=== PATIENT | male | born 1950 | race Caucasian/White ===

== ENCOUNTER 2017-08-08 07:19 | Emergency (ER) | payer OTHER ==
[2017-08-08] MEDS ORDERED: TRAMADOL HCL 50 MG TABLET ONE (08:27)
== END 2017-08-08 08:47 | disposition home or self-care (01) ==
LOC: EDH 07:19
DX: S93.492A Sprain of other ligament of left ankle, initial encounter (principal); E78.5 Hyperlipidemia, unspecified; I10 Essential (primary) hypertension; E11.9 Type 2 diabetes mellitus without complications; W01.0XXA Fall on same level from slipping, tripping and stumbling without subsequent striking against object, initial encounter; Y93.89 Activity, other specified; Y92.89 Other specified places as the place of occurrence of the external cause; Y99.8 Other external cause status
CPT/HCPCS: 73600; 73620

== ENCOUNTER 2020-11-21 05:50 | Day surgery (SDC) | payer OTHER ==
[2020-11-17 14:18] LABS: BASOPHILS % (AUTO) 0.4 % (0.0-5.0); EOSINOPHILS % (AUTO) 2.4 % (0.0-8.0); HEMATOCRIT 38.8 % (42-54); LYMPHOCYTES % (AUTO) 17.6 % (21.0-51.0); MEAN CORPUSCULAR HEMOGLOBIN 29.1 pg (27.0-33.0); MEAN CORPUSCULAR HGB CONC 31.7 g/dL (32.0-36.0); MEAN CORPUSCULAR VOLUME 91.7 fL (79-99); MONOCYTES % (AUTO) 3.6 % (3.0-13.0); NEUTROPHILS % (AUTO) 75.8 % (40.0-77.0); PLATELET COUNT (AUTO) 276 K/uL (130-400); RED BLOOD CELL COUNT(AUTO) 4.23 MIL/uL (4.50-6.20); RED CELL DISTRIBUTION WIDTH 13.5 % (11.0-15.5); WHITE BLOOD COUNT (AUTO) 8.3 K/uL (4.8-10.8)
[2020-11-17 14:22] LABS: APPEARANCE,URINE Cloudy (CLEAR); BILIRUBIN,URINE Negative (NEGATIVE); COLOR,URINE Yellow (YELLOW); GLUCOSE, URINE (UA) 500 mg/dL (NEGATIVE); KETONES,URINE Negative (NEGATIVE); LEUKOCYTE ESTERASE ,URINE Negative (NEGATIVE); NITRATE,URINE Negative (NEGATIVE); OCCULT BLOOD,URINE Nonhemolyzed Trace (NEGATIVE); PROTEIN,URINE POS 1+ mg/dL (NEGATIVE)
[2020-11-17 14:30] LABS: CREATININE 1.1 mg/dL (0.5-1.5); POTASSIUM 4.7 mmol/L (3.5-5.1)
[2020-11-17 14:33] LABS: PROTHROMBIN TIME 10.9 SEC (9.6-11.6)
[2020-11-17 14:34] LABS: PARTIAL THROMBOPLASTIN TIME 26.8 SEC (26.3-35.5)
[2020-11-17 15:08] LABS: RBC,URINE 0-1 /HPF (0-1)
[2020-11-17 15:09] LABS: BACTERIA,URINE Rare /HPF (None Seen); SQUAMOUS EPITHELIAL CELL,UR None Seen /HPF (0-2); WBC,URINE None Seen /HPF (0-1)
[2020-11-20 11:00] VITALS: BP 165/79
[2020-11-21] VITALS (13 sets, daily range): BP systolic 14–167; BP diastolic 50–67
[~2020-11-21] VITALS: Ht 180.3 cm; Wt 86.2 kg
[~2020-11-21 05:50] MED LIST: ALBU90AE IH; AMLO-257 PO; CILO100T PO; CLOP75TA14 PO; HYDR25TA PO; INSU200I SQ; INSU3INS3 SQ; LEVO50CA4 PO; LEVO5TAB13 PO; LISI40TA9 PO; METF-446 PO; ROSU20TA31 PO
[2020-11-21] MEDS ORDERED: 0.9%NACL 1000ML 1,000 ML IV ONE (06:26)
[2020-11-21] MEDS ORDERED: FENTANYL CITRATE PF 50 MCG/1 ML 2ML VIAL ONE (07:43)
[2020-11-21] MEDS ORDERED: NITROGLYCERIN 50MG VIAL IV ONE (07:43)
[2020-11-21] MEDS ORDERED: MIDAZOLAM HCL 1 MG/ML 2ML VIAL ONE (07:43)
[2020-11-21] MEDS ORDERED: HEPARIN 10,000 UNIT/10ML (1,000 UNIT/ML) VIAL ONE (07:43)
[2020-11-21] MEDS ORDERED: IODIXANOL 320 MG/ML 100 ML VIAL ONE (07:43)
[2020-11-21] MEDS ORDERED: LIDOCAINE HCL 400MG/20ML VIAL ONE (07:44)
[2020-11-21] MEDS ORDERED: 0.9%NACL 1000ML 1,000 ML IV SCH ×2 (08:00→09:00)
[2020-11-21] MEDS ORDERED: DEXTROSE 50%-WATER 50 ML DISP.SYRIN IV PRN (09:00)
[2020-11-21] MEDS ORDERED: GLUCAGON 1MG KIT 1 MG ML IM PRN (09:00)
[2020-11-21] MEDS ORDERED: INSULIN HUMULIN R 100 UNIT/ML 3ML SQ SCH (11:30)
[2021-06-13] MEDS ORDERED: FAMO40TA7 PO (15:46)
[2021-06-13] MEDS ORDERED: DOCU100T9 PO (15:46)
[2021-06-13] MEDS ORDERED: HYDR25TA PO (15:46)
[2021-06-13] MEDS ORDERED: METO-408 PO (15:46)
== END 2020-11-21 15:25 | disposition home or self-care (01) ==
LOC: DAH 05:50
PROVIDERS: ATTEND Internal Medicine
DX: I70.213 Atherosclerosis of native arteries of extremities with intermittent claudication, bilateral legs (principal); I70.92 Chronic total occlusion of artery of the extremities; I70.0 Atherosclerosis of aorta; I10 Essential (primary) hypertension; E78.5 Hyperlipidemia, unspecified; I45.10 Unspecified right bundle-branch block; Z87.891 Personal history of nicotine dependence; Z79.01 Long term (current) use of anticoagulants; Z79.899 Other long term (current) drug therapy; Z79.4 Long term (current) use of insulin; Z79.82 Long term (current) use of aspirin; Z98.890 Other specified postprocedural states; Z72.89 Other problems related to lifestyle
CPT/HCPCS: 36247; 36415; 71045; 75625; 75716; 80048; 81001; 82948 ×2; 85025; 85610; 85730; 93005; A4215; A4216; A4221; A4222; A4223 ×3; A4606; A4663; C1769; C1887; C1894 ×2; J1644 ×2; J2250; J3010; J3490 ×2; J7030; Q9967; 96360; 96361; 99156; 99157

== ENCOUNTER 2021-04-19 16:03 | Inpatient (IN) | payer OTHER ==
[~2021-04-19] VITALS: Ht 180.3 cm; Wt 79.7 kg
[2021-04-19 16:42] LABS: BASOPHILS % (AUTO) 0.4 % (0.0-5.0); HEMATOCRIT 37.6 % (42-54); LYMPHOCYTES % (AUTO) 10.9 % (21.0-51.0); MEAN CORPUSCULAR HEMOGLOBIN 29.4 pg (27.0-33.0); MEAN CORPUSCULAR HGB CONC 32.4 g/dL (32.0-36.0); MEAN CORPUSCULAR VOLUME 90.6 fL (79-99); MONOCYTES % (AUTO) 4.4 % (3.0-13.0); NEUTROPHILS % (AUTO) 82.8 % (40.0-77.0); PLATELET COUNT (AUTO) 315 K/uL (130-400); RED BLOOD CELL COUNT(AUTO) 4.15 MIL/uL (4.50-6.20); RED CELL DISTRIBUTION WIDTH 13.2 % (11.0-15.5); WHITE BLOOD COUNT (AUTO) 16.5 K/uL (4.8-10.8)
[2021-04-19 16:47] LABS: APPEARANCE,URINE Clear (CLEAR); BILIRUBIN,URINE Negative (NEGATIVE); COLOR,URINE Yellow (YELLOW); GLUCOSE, URINE (UA) >=1000 mg/dL (NEGATIVE); KETONES,URINE Negative (NEGATIVE); LEUKOCYTE ESTERASE ,URINE Negative (NEGATIVE); NITRATE,URINE Negative (NEGATIVE); OCCULT BLOOD,URINE Moderate (NEGATIVE); PH,URINE 5.5 (5.0-8.0); PROTEIN,URINE POS 1+ mg/dL (NEGATIVE)
[2021-04-19 16:53] LABS: BACTERIA,URINE Few /HPF (None Seen); RBC,URINE 0-1 /HPF (0-1)
[2021-04-19 16:54] LABS: SQUAMOUS EPITHELIAL CELL,UR Rare /HPF (0-2)
[2021-04-19 17:06] LABS: ALBUMIN 3.5 g/dL (3.5-5.0); BILIRUBIN,TOTAL 0.2 mg/dL (0.2-1.0); CREATININE 1.4 mg/dL (0.5-1.5); CRP QUANTITATIVE 8.5 mg/L (0.00-9.0); TOTAL PROTEIN, SERUM 7.2 g/dL (6.0-8.3)
[2021-04-19] MEDS ORDERED: ACETAMINOPHEN 650 MG SUPPOSITORY RC PRN (18:00)
[2021-04-19] MEDS ORDERED: ONDANSETRON 4MG INJ IVP PRN (18:00)
[2021-04-19] MEDS ORDERED: ZOSYN 3.375GM +NS 50ML IV SCH (18:00)
[2021-04-19] MEDS: LACTATED RINGERS 1000ML 1,000 ML IV SCH (19:00)
[2021-04-19] MEDS ORDERED: 0.9%NACL 50ML 50 ML IV ONE (20:21)
[2021-04-19 20:24] LABS: APPEARANCE,URINE Clear (CLEAR); BILIRUBIN,URINE Negative (NEGATIVE); COLOR,URINE Yellow (YELLOW); GLUCOSE, URINE (UA) >=1000 mg/dL (NEGATIVE); KETONES,URINE Negative (NEGATIVE); LEUKOCYTE ESTERASE ,URINE Trace (NEGATIVE); NITRATE,URINE Negative (NEGATIVE); OCCULT BLOOD,URINE Moderate (NEGATIVE); PH,URINE 5.5 (5.0-8.0); PROTEIN,URINE POS 1+ mg/dL (NEGATIVE); UROBILINOGEN,URINE 0.2 mg/dL (0.2-1.0)
[2021-04-19 20:31] LABS: RBC,URINE 0-1 /HPF (0-1)
[2021-04-19 20:32] LABS: BACTERIA,URINE Few /HPF (None Seen); SQUAMOUS EPITHELIAL CELL,UR Few /HPF (0-2)
[2021-04-19] MEDS ORDERED: TEMAZEPAM 15 MG CAPSULE PO PRN (21:00)
[2021-04-19] MEDS ORDERED: LACTULOSE 20 GM/30 ML UDCUP PO PRN (21:00)
[2021-04-19] MEDS: INSULIN HUMULIN R 100 UNIT/ML 3ML SQ SCH (21:26)
[2021-04-19] MEDS ORDERED: DEXTROSE 50%-WATER 50 ML DISP.SYRIN IV PRN (21:30)
[2021-04-19] MEDS ORDERED: GLUCAGON 1MG KIT 1 MG ML IM PRN (21:30)
[2021-04-19] MEDS ORDERED: POTASSIUM CHLORIDE 20MEQ/100ML 100 ML IV PRN (21:30)
[2021-04-19] MEDS ORDERED: POTASSIUM CHLORIDE 10% ELIXIR 20 MEQ/15 ML UDCUP PO PRN (21:30)
[2021-04-19] MEDS ORDERED: LIDOCAINE HCL-MPF 1% 2ML VIAL IV PRN (21:30)
[2021-04-19] MEDS ORDERED: HYDRALAZINE 20MG/ML VIAL IV PRN (21:30)
[2021-04-19] MEDS: ATORVASTATIN 40 MG TABLET PO SCH (22:47)
[2021-04-20] MEDS: IPRATROPIUM/ALBUTEROL SULFATE 3 ML SOLUTION IH SCH ×5 (00:43→23:56)
[2021-04-20] MEDS: LACTATED RINGERS 1000ML 1,000 ML IV SCH ×3 (03:08→18:56)
[2021-04-20 05:48] LABS: HEMATOCRIT 37.1 % (42-54); MEAN CORPUSCULAR HEMOGLOBIN 29.7 pg (27.0-33.0); MEAN CORPUSCULAR HGB CONC 32.3 g/dL (32.0-36.0); MEAN CORPUSCULAR VOLUME 91.8 fL (79-99); RED BLOOD CELL COUNT(AUTO) 4.04 MIL/uL (4.50-6.20); RED CELL DISTRIBUTION WIDTH 13.2 % (11.0-15.5); WHITE BLOOD COUNT (AUTO) 9.8 K/uL (4.8-10.8)
[2021-04-20 05:59] LABS: CREATININE 1.2 mg/dL (0.5-1.5); MAGNESIUM 2.1 mg/dL (1.80-2.40); PHOSPHORUS 3.8 mg/dL (2.5-4.9); POTASSIUM 4.2 mmol/L (3.5-5.1)
[2021-04-20] MEDS ORDERED: 0.9%NACL 50ML 50 ML IV ONE ×3 (06:10→22:53)
[2021-04-20] MEDS: ZOSYN 3.375GM +NS 50ML IV SCH ×3 (06:13→22:58)
[2021-04-20 06:39] LABS: HEMOGLOBIN A1C 7.9 % (4.0-6.0)
[2021-04-20] MEDS: LEVOTHYROXINE 50 MCG TABLET PO SCH (06:45)
[2021-04-20] MEDS: INSULIN HUMULIN R 100 UNIT/ML 3ML SQ SCH ×6 (07:30→21:00)
[2021-04-20] MEDS: ACETAMINOPHEN 325 MG TAB PO PRN ×3 (07:42→21:48)
[2021-04-20] MEDS: PANTOPRAZOLE 40 MG TAB DR PO SCH (07:42)
[2021-04-20] MEDS: INSULIN GLARGINE 100 UNITS/ML 10 ML VIAL SQ SCH ×2 (07:44→21:00)
[2021-04-20] MEDS: CLOPIDOGREL 75MG TAB PO SCH (09:16)
[2021-04-20] MEDS: ENOXAPARIN SODIUM 40 MG/0.4 ML SYRINGE SQ SCH (09:18)
[2021-04-20 09:47] LABS: INR 0.94 (0.85-1.15); PROTHROMBIN TIME 10.3 SEC (9.6-11.6)
[2021-04-20 09:48] LABS: PARTIAL THROMBOPLASTIN TIME 23.6 SEC (26.3-35.5)
[2021-04-20] MEDS: CILOSTAZOL 100 MG TAB PO SCH (10:11)
[2021-04-20] MEDS: NICOTINE 14 MG/ 24 HR PATCH TD SCH (10:12)
[2021-04-20] MEDS: ***HM***(Levocetirizine Dihydrochloride 5 MG) PO SCH (21:00)
[2021-04-20] MEDS: ATORVASTATIN 40 MG TABLET PO SCH (22:58)
[2021-04-20 23:03] VITALS: BP 170/68
[2021-04-21] VITALS (8 sets, daily range): BP systolic 112–167; BP diastolic 44–69
[2021-04-21] MEDS: CILOSTAZOL 100 MG TAB PO SCH ×3 (00:09→21:00)
[2021-04-21] MEDS: LACTATED RINGERS 1000ML 1,000 ML IV SCH ×3 (01:44→18:09)
[2021-04-21] MEDS ORDERED: MORPHINE 4 MG SYG ONE (02:16)
[2021-04-21] MEDS: MORPHINE 4 MG SYG IV PRN (02:30)
[2021-04-21] MEDS: ACETAMINOPHEN 325 MG TAB PO PRN ×2 (04:20→16:27)
[2021-04-21] MEDS: ZOSYN 3.375GM +NS 50ML IV SCH ×3 (05:33→21:31)
[2021-04-21] MEDS: PANTOPRAZOLE 40 MG TAB DR PO SCH (05:33)
[2021-04-21] MEDS: LEVOTHYROXINE 50 MCG TABLET PO SCH (05:33)
[2021-04-21] MEDS: INSULIN HUMULIN R 100 UNIT/ML 3ML SQ SCH ×4 (05:34→22:21)
[2021-04-21] MEDS: IPRATROPIUM/ALBUTEROL SULFATE 3 ML SOLUTION IH SCH ×3 (06:17→18:05)
[2021-04-21] MEDS: INSULIN GLARGINE 100 UNITS/ML 10 ML VIAL SQ SCH ×2 (06:59→22:22)
[2021-04-21] MEDS: AMLODIPINE 5 MG TAB PO SCH (08:03)
[2021-04-21] MEDS: HYDROCHLOROTHIAZIDE 25 MG TABLET PO SCH (08:03)
[2021-04-21] MEDS: CLOPIDOGREL 75MG TAB PO SCH (08:03)
[2021-04-21] MEDS: ENOXAPARIN SODIUM 40 MG/0.4 ML SYRINGE SQ SCH (08:05)
[2021-04-21] MEDS: NICOTINE 14 MG/ 24 HR PATCH TD SCH (09:16)
[2021-04-21 11:50] LABS: HEMATOCRIT 35.5 % (42-54); MEAN CORPUSCULAR HEMOGLOBIN 29.4 pg (27.0-33.0); MEAN CORPUSCULAR HGB CONC 32.4 g/dL (32.0-36.0); MEAN CORPUSCULAR VOLUME 90.8 fL (79-99); RED BLOOD CELL COUNT(AUTO) 3.91 MIL/uL (4.50-6.20); RED CELL DISTRIBUTION WIDTH 13.3 % (11.0-15.5); WHITE BLOOD COUNT (AUTO) 8.5 K/uL (4.8-10.8)
[2021-04-21 12:01] LABS: CREATININE 1.1 mg/dL (0.5-1.5); POTASSIUM 3.9 mmol/L (3.5-5.1)
[2021-04-21] MEDS: ***HM***(Levocetirizine Dihydrochloride 5 MG) PO SCH (21:00)
[2021-04-21] MEDS: ATORVASTATIN 40 MG TABLET PO SCH (21:31)
[2021-04-22] MEDS: IPRATROPIUM/ALBUTEROL SULFATE 3 ML SOLUTION IH SCH ×4 (00:15→18:07)
[2021-04-22] MEDS: ACETAMINOPHEN 325 MG TAB PO PRN (00:32)
[2021-04-22] MEDS: LACTATED RINGERS 1000ML 1,000 ML IV SCH ×3 (02:00→18:00)
[2021-04-22 03:40] VITALS: BP 159/65
[2021-04-22] MEDS: MORPHINE 4 MG SYG IV PRN (05:08)
[2021-04-22] MEDS: ZOSYN 3.375GM +NS 50ML IV SCH ×3 (05:08→20:45)
[2021-04-22 05:42] LABS: HEMATOCRIT 36.9 % (42-54); MEAN CORPUSCULAR HEMOGLOBIN 29.4 pg (27.0-33.0); RED BLOOD CELL COUNT(AUTO) 4.01 MIL/uL (4.50-6.20); RED CELL DISTRIBUTION WIDTH 13.3 % (11.0-15.5); WHITE BLOOD COUNT (AUTO) 6.9 K/uL (4.8-10.8)
[2021-04-22 05:53] LABS: CREATININE 1.1 mg/dL (0.5-1.5); POTASSIUM 3.6 mmol/L (3.5-5.1)
[2021-04-22] MEDS: LEVOTHYROXINE 50 MCG TABLET PO SCH (06:29)
[2021-04-22] MEDS: PANTOPRAZOLE 40 MG TAB DR PO SCH (06:29)
[2021-04-22] MEDS: INSULIN GLARGINE 100 UNITS/ML 10 ML VIAL SQ SCH ×2 (06:36→21:00)
[2021-04-22] MEDS: INSULIN HUMULIN R 100 UNIT/ML 3ML SQ SCH ×4 (06:44→21:00)
[2021-04-22] MEDS: HYDROCHLOROTHIAZIDE 25 MG TABLET PO SCH (08:38)
[2021-04-22] MEDS: AMLODIPINE 5 MG TAB PO SCH (08:38)
[2021-04-22] MEDS: CLOPIDOGREL 75MG TAB PO SCH (08:39)
[2021-04-22] MEDS: ENOXAPARIN SODIUM 40 MG/0.4 ML SYRINGE SQ SCH (08:39)
[2021-04-22 08:50] VITALS: BP 117/72
[2021-04-22 11:15] VITALS: BP 170/65
[2021-04-22] MEDS: NICOTINE 14 MG/ 24 HR PATCH TD SCH (11:20)
[2021-04-22] MEDS: CILOSTAZOL 100 MG TAB PO SCH ×2 (11:20→20:45)
[2021-04-22 16:46] VITALS: BP 175/64
[2021-04-22] MEDS ORDERED: TAMSULOSIN HCL 0.4 MG CAP.ER.24H PO SCH (18:30)
[2021-04-22] MEDS ORDERED: TAMSULOSIN HCL 0.4 MG CAP.ER.24H ONE (18:37)
[2021-04-22 20:23] VITALS: BP 177/68
[2021-04-22] MEDS: ATORVASTATIN 40 MG TABLET PO SCH (20:45)
[2021-04-22] MEDS: ***HM***(Levocetirizine Dihydrochloride 5 MG) PO SCH (20:50)
[2021-04-23] MEDS: MORPHINE 4 MG SYG IV PRN (00:10)
[2021-04-23] MEDS: IPRATROPIUM/ALBUTEROL SULFATE 3 ML SOLUTION IH SCH ×3 (00:11→12:36)
[2021-04-23 00:21] VITALS: BP 143/61
[2021-04-23] MEDS: LACTATED RINGERS 1000ML 1,000 ML IV SCH ×2 (02:00→10:00)
[2021-04-23 04:05] VITALS: BP 119/62
[2021-04-23 05:05] LABS: HEMATOCRIT 34.9 % (42-54); MEAN CORPUSCULAR HEMOGLOBIN 29.4 pg (27.0-33.0); MEAN CORPUSCULAR HGB CONC 32.7 g/dL (32.0-36.0); MEAN CORPUSCULAR VOLUME 89.9 fL (79-99); RED BLOOD CELL COUNT(AUTO) 3.88 MIL/uL (4.50-6.20); RED CELL DISTRIBUTION WIDTH 13.2 % (11.0-15.5); WHITE BLOOD COUNT (AUTO) 7.7 K/uL (4.8-10.8)
[2021-04-23 05:17] LABS: POTASSIUM 3.6 mmol/L (3.5-5.1)
[2021-04-23] MEDS: ZOSYN 3.375GM +NS 50ML IV SCH ×2 (05:24→12:56)
[2021-04-23] MEDS: INSULIN HUMULIN R 100 UNIT/ML 3ML SQ SCH ×3 (05:41→17:05)
[2021-04-23] MEDS: PANTOPRAZOLE 40 MG TAB DR PO SCH (05:44)
[2021-04-23] MEDS: LEVOTHYROXINE 50 MCG TABLET PO SCH (05:44)
[2021-04-23] MEDS: KCL 20 MEQ ERTAB PO PRN ×2 (06:40→11:57)
[2021-04-23] MEDS: INSULIN GLARGINE 100 UNITS/ML 10 ML VIAL SQ SCH (06:43)
[2021-04-23 08:01] VITALS: BP 174/63
[2021-04-23] MEDS ORDERED: AMOX-426 PO (08:36)
[2021-04-23] MEDS ORDERED: TAMS-1 PO (08:36)
[2021-04-23] MEDS ORDERED: TAMSULOSIN HCL 0.4 MG CAP.ER.24H PO SCH (09:00)
[2021-04-23] MEDS: NICOTINE 14 MG/ 24 HR PATCH TD SCH (10:21)
[2021-04-23] MEDS: ENOXAPARIN SODIUM 40 MG/0.4 ML SYRINGE SQ SCH (10:21)
[2021-04-23] MEDS: CILOSTAZOL 100 MG TAB PO SCH (10:22)
[2021-04-23] MEDS: AMLODIPINE 5 MG TAB PO SCH (10:22)
[2021-04-23] MEDS: CLOPIDOGREL 75MG TAB PO SCH (10:22)
[2021-04-23] MEDS: HYDROCHLOROTHIAZIDE 25 MG TABLET PO SCH (10:22)
[2021-04-23 11:05] VITALS: BP 158/66
[2021-04-23 16:19] VITALS: BP 170/67
== END 2021-04-23 19:00 | disposition home or self-care (01) | DRG 871 ==
LOC: EDH 16:03 → EDHIP 17:32 → OBSVTOIN 17:32 → 3AH 04-20 21:30
PROVIDERS: ADMIT Internal Medicine Pulmonary Disease; ATTEND Internal Medicine Pulmonary Disease
DX: A41.9 Sepsis, unspecified organism (principal); N15.1 Renal and perinephric abscess; J44.9 Chronic obstructive pulmonary disease, unspecified; Z20.822 Contact with and (suspected) exposure to COVID-19; M19.90 Unspecified osteoarthritis, unspecified site; I10 Essential (primary) hypertension; E78.5 Hyperlipidemia, unspecified; F17.210 Nicotine dependence, cigarettes, uncomplicated; E10.51 Type 1 diabetes mellitus with diabetic peripheral angiopathy without gangrene; E03.9 Hypothyroidism, unspecified; K59.00 Constipation, unspecified; N28.89 Other specified disorders of kidney and ureter; R79.89 Other specified abnormal findings of blood chemistry; Z91.041 Radiographic dye allergy status; Z79.84 Long term (current) use of oral hypoglycemic drugs; Z79.02 Long term (current) use of antithrombotics/antiplatelets; Z79.4 Long term (current) use of insulin; Z79.899 Other long term (current) drug therapy
CPT/HCPCS: 36415; 71045; 71250; 74150; 74170; 74176; 74181; 76770; 78582; 80048; 80053; 81001; 82948; 83036; 83735; 84100; 84153; 84484; 85025; 85027; 85378; 85610; 85730; 86140; 87040; 87077; 87088; 87186; 87635; 93005; 93970; 94640; 94664; A9540; A9558; G0378; J0360; J1200; J1650; J1815; J2270; J2405; J2543; J2930; J7120; Q9967

== ENCOUNTER 2021-06-14 05:56 | Observation (INO) | payer OTHER ==
[2021-06-12 10:48] VITALS: BP 177/62
[2021-06-12 13:10] LABS: BASOPHILS % (AUTO) 0.3 % (0.0-5.0); EOSINOPHILS % (AUTO) 2.6 % (0.0-8.0); HEMATOCRIT 36.8 % (42-54); LYMPHOCYTES % (AUTO) 16.6 % (21.0-51.0); MEAN CORPUSCULAR HEMOGLOBIN 30.3 pg (27.0-33.0); MEAN CORPUSCULAR HGB CONC 33.2 g/dL (32.0-36.0); MEAN CORPUSCULAR VOLUME 91.3 fL (79-99); MONOCYTES % (AUTO) 4.7 % (3.0-13.0); NEUTROPHILS % (AUTO) 75.5 % (40.0-77.0); PLATELET COUNT (AUTO) 299 K/uL (130-400); RED BLOOD CELL COUNT(AUTO) 4.03 MIL/uL (4.50-6.20); RED CELL DISTRIBUTION WIDTH 13.4 % (11.0-15.5); WHITE BLOOD COUNT (AUTO) 10.6 K/uL (4.8-10.8)
[2021-06-12 13:19] LABS: CREATININE 1.2 mg/dL (0.5-1.5); POTASSIUM 4.5 mmol/L (3.5-5.1)
[2021-06-12 13:23] LABS: APPEARANCE,URINE Clear (CLEAR); BILIRUBIN,URINE Negative (NEGATIVE); COLOR,URINE Yellow (YELLOW); GLUCOSE, URINE (UA) 500 mg/dL (NEGATIVE); KETONES,URINE Negative (NEGATIVE); LEUKOCYTE ESTERASE ,URINE Negative (NEGATIVE); NITRATE,URINE Negative (NEGATIVE); OCCULT BLOOD,URINE Trace (NEGATIVE); PROTEIN,URINE POS 2+ mg/dL (NEGATIVE); UROBILINOGEN,URINE 0.2 mg/dL (0.2-1.0)
[2021-06-12 13:27] LABS: INR 0.92 (0.85-1.15); PROTHROMBIN TIME 10.1 SEC (9.6-11.6)
[2021-06-12 13:28] LABS: PARTIAL THROMBOPLASTIN TIME 27.1 SEC (26.3-35.5)
[2021-06-12 13:31] LABS: BACTERIA,URINE Rare /HPF (None Seen); RBC,URINE 0-1 /HPF (0-1); SQUAMOUS EPITHELIAL CELL,UR Rare /HPF (0-2); WBC,URINE 0-1 /HPF (0-1)
[~2021-06-14] VITALS: Ht 180.3 cm; Wt 83.9 kg
[2021-06-14] VITALS (19 sets, daily range): BP systolic 121–160; BP diastolic 49–82
[~2021-06-14 05:56] MED LIST changes: -ALBU90AE IH; +DOCU100T9 PO; +FAMO40TA7 PO; -LEVO5TAB13 PO; +METO-408 PO
[2021-06-14] MEDS ORDERED: 0.9%NACL 1000ML 1,000 ML IV ONE (06:19)
[2021-06-14] MEDS ORDERED: SOLU-MEDROL 125MG VIAL IVP SCH (06:30)
[2021-06-14] MEDS ORDERED: DiphenhydrAMINE HCL 50 MG/ML VIAL IV SCH (06:30)
[2021-06-14] MEDS ORDERED: HEPARIN 10,000 UNIT/10ML (1,000 UNIT/ML) VIAL ONE (07:11)
[2021-06-14] MEDS ORDERED: IODIXANOL 320 MG/ML 100 ML VIAL ONE ×3 (07:11→09:59)
[2021-06-14] MEDS ORDERED: FENTANYL CITRATE PF 50 MCG/1 ML 2ML VIAL ONE ×2 (07:12→09:37)
[2021-06-14] MEDS ORDERED: LIDOCAINE HCL 400MG/20ML VIAL ONE ×2 (07:12→08:57)
[2021-06-14] MEDS ORDERED: MIDAZOLAM HCL 1 MG/ML 2ML VIAL ONE (07:12)
[2021-06-14] MEDS ORDERED: METO-408 PO (07:19)
[2021-06-14] MEDS ORDERED: PRED20TA3 PO (07:23)
[2021-06-14] MEDS ORDERED: HYDRALAZINE 20MG/ML VIAL ONE ×2 (07:53→10:36)
[2021-06-14] MEDS ORDERED: CLOPIDOGREL 300MG TAB ONE (10:25)
[2021-06-14] MEDS ORDERED: NITROGLYCERIN 50MG VIAL IV ONE (10:58)
[2021-06-14] MEDS: INSULIN HUMULIN R 100 UNIT/ML 3ML SQ SCH ×3 (11:30→20:56)
[2021-06-14] MEDS ORDERED: DEXTROSE 50%-WATER 50 ML DISP.SYRIN IV PRN (11:30)
[2021-06-14] MEDS ORDERED: ACETAMINOPHEN WITH CODEINE 1 TAB TAB PO PRN (11:30)
[2021-06-14] MEDS: 0.9%NACL 1000ML 1,000 ML IV SCH ×2 (11:30→17:53)
[2021-06-14] MEDS ORDERED: GLUCAGON 1MG KIT 1 MG ML IM PRN (11:30)
[2021-06-14] MEDS: DOCUSATE SODIUM 100 MG CAP PO SCH (12:03)
[2021-06-14] MEDS: METOPROLOL SUCCINATE 50 MG TAB.SR.24H PO SCH (12:09)
[2021-06-14] MEDS: INSULIN LISPRO 100 UNIT/ML 3ML SQ SCH (17:09)
[2021-06-14] MEDS ORDERED: IPRATROPIUM 0.5 MG/2.5 ML INH IH SCH (17:15)
[2021-06-14 17:28] LABS: HEMOGLOBIN A1C 7.5 % (4.0-6.0)
[2021-06-14] MEDS ORDERED: ATORVASTATIN 40 MG TABLET PO SCH (21:00)
[2021-06-14] MEDS ORDERED: LISINOPRIL 40 MG TABLET PO SCH (21:00)
[2021-06-14] MEDS ORDERED: FAMOTIDINE 20MG TAB PO SCH (21:00)
[2021-06-15 03:23] VITALS: BP 134/47
[2021-06-15 04:54] LABS: HEMATOCRIT 32.5 % (42-54); MEAN CORPUSCULAR HEMOGLOBIN 29.7 pg (27.0-33.0); MEAN CORPUSCULAR HGB CONC 32.3 g/dL (32.0-36.0); MEAN CORPUSCULAR VOLUME 91.8 fL (79-99); RED BLOOD CELL COUNT(AUTO) 3.54 MIL/uL (4.50-6.20); RED CELL DISTRIBUTION WIDTH 13.4 % (11.0-15.5); WHITE BLOOD COUNT (AUTO) 15.8 K/uL (4.8-10.8)
[2021-06-15 05:10] LABS: CREATININE 1.4 mg/dL (0.5-1.5); MAGNESIUM 2.1 mg/dL (1.80-2.40); POTASSIUM 4.2 mmol/L (3.5-5.1)
[2021-06-15] MEDS: INSULIN LISPRO 100 UNIT/ML 3ML SQ SCH (06:09)
[2021-06-15] MEDS: INSULIN HUMULIN R 100 UNIT/ML 3ML SQ SCH ×2 (06:12→11:30)
[2021-06-15] MEDS ORDERED: LEVOTHYROXINE 50 MCG TABLET PO SCH (06:30)
[2021-06-15] MEDS: DOCUSATE SODIUM 100 MG CAP PO SCH (08:21)
[2021-06-15] MEDS: METOPROLOL SUCCINATE 50 MG TAB.SR.24H PO SCH (08:21)
[2021-06-15 08:34] VITALS: BP 133/53
[2021-06-15] MEDS ORDERED: HYDROCHLOROTHIAZIDE 25 MG TABLET PO SCH (09:00)
[2021-06-15] MEDS ORDERED: AMLODIPINE 5 MG TAB PO SCH (09:00)
[2021-06-15] MEDS ORDERED: ASPIRIN 81MG CHEW TAB PO SCH (09:00)
[2021-06-15] MEDS ORDERED: CLOPIDOGREL 75MG TAB PO SCH (09:00)
[2021-06-15] MEDS ORDERED: INSULIN GLARGINE 100 UNITS/ML 10 ML VIAL SQ SCH (09:00)
[2021-06-15] MEDS ORDERED: CLOP75TA14 PO (09:05)
[2021-06-15] MEDS ORDERED: ASPI-1005 PO (09:05)
[2021-06-15 12:30] VITALS: BP 127/57
== END 2021-06-15 12:25 | disposition home or self-care (01) ==
LOC: DAH 05:56 → DAHIP 05:57 → DAH 05:57 → 2DH 15:04
PROVIDERS: ADMIT Internal Medicine; ATTEND Internal Medicine
DX: I73.9 Peripheral vascular disease, unspecified (principal); I10 Essential (primary) hypertension; T38.0X5A Adverse effect of glucocorticoids and synthetic analogues, initial encounter; E78.5 Hyperlipidemia, unspecified; J44.9 Chronic obstructive pulmonary disease, unspecified; E11.65 Type 2 diabetes mellitus with hyperglycemia; N28.89 Other specified disorders of kidney and ureter; Z79.4 Long term (current) use of insulin; Z87.891 Personal history of nicotine dependence; Z79.84 Long term (current) use of oral hypoglycemic drugs; Z79.899 Other long term (current) drug therapy; Z98.890 Other specified postprocedural states
CPT/HCPCS: 36415 ×3; 37225; 71045; 75710; 80048 ×2; 81001; 82948 ×6; 83036; 83735; 84443; 85025; 85027; 85610; 85730; 93005; 96374; A4215; A4216; A4221; A4222; A4223 ×3; A4606; A4663; C1724 ×2; C1725; C1760; C1769 ×4; C1887; C1893; C1894 ×4; C2623 ×2; G0378 ×24; J0360 ×2; J1200; J1644 ×3; J1815 ×3; J2250; J2930; J3010 ×2; J3490 ×3; J7030 ×2; Q9967 ×3; 75774; 99156; 99157

== ENCOUNTER → 2022-02-19 | Outpatient (CLI) | payer OTHER ==
[~2022-02-19] MED LIST changes: +ASPI-1005 PO; -CILO100T PO; +IOHEXOL 350 MG/ML 100ML INFUS..BTL IV ONE
== END | disposition home or self-care (01) ==
LOC: RAH 07:39
PROVIDERS: ATTEND Internal Medicine
DX: N28.89 Other specified disorders of kidney and ureter (principal)
CPT/HCPCS: 74170; Q9967

== ENCOUNTER → 2022-06-28 | Outpatient (CLI) | payer OTHER ==
[~2022-06-28] MED LIST changes: +CLOP-31 PO; -CLOP75TA14 PO
== END | disposition home or self-care (01) ==
LOC: RAH 08:57
PROVIDERS: ATTEND Internal Medicine
DX: R93.5 Abnormal findings on diagnostic imaging of other abdominal regions, including retroperitoneum (principal); M47.815 Spondylosis without myelopathy or radiculopathy, thoracolumbar region
CPT/HCPCS: 74178; Q9967

== ENCOUNTER → 2023-01-16 | Outpatient (CLI) | payer OTHER ==
[~2023-01-16] MED LIST changes: -ROSU20TA31 PO; +ROSU20TA73 PO
== END | disposition home or self-care (01) ==
LOC: RAH 08:02
PROVIDERS: ATTEND Internal Medicine
DX: N28.1 Cyst of kidney, acquired (principal); N28.89 Other specified disorders of kidney and ureter
CPT/HCPCS: 74178; Q9967

== ENCOUNTER → 2023-05-28 | Outpatient (CLI) | payer OTHER ==
[~2023-05-28] MED LIST changes: -IOHEXOL 350 MG/ML 100ML INFUS..BTL IV ONE
== END | disposition home or self-care (01) ==
LOC: RAH 09:29
PROVIDERS: ATTEND Internal Medicine
DX: I70.213 Atherosclerosis of native arteries of extremities with intermittent claudication, bilateral legs (principal)
CPT/HCPCS: 93925

== ENCOUNTER → 2023-07-04 | Outpatient (CLI) | payer OTHER ==
[~2023-07-04] MED LIST changes: +IOHEXOL 350 MG/ML 100ML INFUS..BTL IV ONE; +IOHEXOL-350 50ML VIAL IV ONE; +IOHEXOL-350 75 ML VIAL IV ONE
== END | disposition home or self-care (01) ==
LOC: RAH 10:17
PROVIDERS: ATTEND Internal Medicine
DX: K76.89 Other specified diseases of liver (principal); I73.9 Peripheral vascular disease, unspecified; N40.0 Benign prostatic hyperplasia without lower urinary tract symptoms; K42.9 Umbilical hernia without obstruction or gangrene
CPT/HCPCS: 75635; Q9967

== ENCOUNTER → 2023-08-20 | Outpatient (CLI) | payer OTHER ==
[~2023-08-20] MED LIST changes: -IOHEXOL-350 50ML VIAL IV ONE; -IOHEXOL-350 75 ML VIAL IV ONE
== END ==
LOC: RAH 09:18
PROVIDERS: ATTEND Internal Medicine
DX: N28.89 Other specified disorders of kidney and ureter (principal)
CPT/HCPCS: 74178; Q9967

== ENCOUNTER → 2024-01-13 | Outpatient (CLI) | payer OTHER ==
[~2024-01-13] MED LIST changes: -IOHEXOL 350 MG/ML 100ML INFUS..BTL IV ONE
== END | disposition home or self-care (01) ==
LOC: RAH 13:05
PROVIDERS: ATTEND Internal Medicine
DX: I70.203 Unspecified atherosclerosis of native arteries of extremities, bilateral legs (principal)
CPT/HCPCS: 93925

== ENCOUNTER → 2024-02-11 | Outpatient (CLI) | payer OTHER ==
[2024-02-11 12:41] LABS: CREATININE 1.5 mg/dL (0.5-1.3); POTASSIUM 4.6 mmol/L (3.5-5.1)
[2024-02-11 16:27] LABS: BASOPHILS # (AUTO) 0.03 K/uL (0.00-0.20); BASOPHILS % (AUTO) 0.3 % (0.0-5.0); EOSINOPHILS # (AUTO) 0.21 K/uL (0.00-0.70); EOSINOPHILS % (AUTO) 2.1 % (0.0-8.0); HEMATOCRIT 44.4 % (42-54); IMMATURE GRANULOCYTE ABSOLUTE 0.02 K/uL (0-1); LYMPHOCYTES % (AUTO) 20.4 % (21.0-51.0); MEAN CORPUSCULAR HEMOGLOBIN 31.2 pg (27.0-33.0); MEAN CORPUSCULAR HGB CONC 32.7 g/dL (32.0-36.0); MEAN CORPUSCULAR VOLUME 95.5 fL (79-99); MONOCYTES # (AUTO) 0.3 K/uL (0.1-1.0); MONOCYTES % (AUTO) 2.6 % (3.0-13.0); NEUTROPHILS # (AUTO) 7.3 K/uL (1.8-7.7); NEUTROPHILS % (AUTO) 74.4 % (40.0-77.0); PLATELET COUNT (AUTO) 282 K/uL (130-400); RED BLOOD CELL COUNT(AUTO) 4.65 MIL/uL (4.50-6.20); RED CELL DISTRIBUTION WIDTH 12.7 % (11.0-15.5); WHITE BLOOD COUNT (AUTO) 9.8 K/uL (4.8-10.8)
[2024-02-11 16:34] LABS: INR <= 0.93 (0.85-1.15); PROTHROMBIN TIME 9.9 SEC (9.6-11.6)
[2024-02-11 16:35] LABS: PARTIAL THROMBOPLASTIN TIME 26.6 SEC (26.3-35.5)
== END | disposition home or self-care (01) ==
LOC: LAB 10:39
PROVIDERS: ATTEND Internal Medicine
DX: I10 Essential (primary) hypertension (principal); E78.5 Hyperlipidemia, unspecified; E11.59 Type 2 diabetes mellitus with other circulatory complications; I73.9 Peripheral vascular disease, unspecified; Z79.01 Long term (current) use of anticoagulants
CPT/HCPCS: 36415; 80048; 85025; 85610; 85730

== ENCOUNTER 2024-04-06 13:34 | Inpatient (IN) | payer MEDICARE, OTHER ==
[~2024-04-06] VITALS: Ht 175.3 cm; Wt 78.1 kg
[~2024-04-06 13:34] MED LIST changes: -ROSU20TA73 PO; +ROSU20TA98 PO
[2024-04-06] MEDS: acetaMINOPHEN 325 MG TAB PO ONE (14:30)
[2024-04-06] MEDS: 0.9%NACL 1000ML 1,000 ML IV ONE (14:30)
[2024-04-06 14:33] LABS: BASOPHILS # (AUTO) 0.06 K/uL (0.00-0.20); BASOPHILS % (AUTO) 0.2 % (0.0-5.0); EOSINOPHILS # (AUTO) 0.08 K/uL (0.00-0.70); EOSINOPHILS % (AUTO) 0.3 % (0.0-8.0); HEMATOCRIT 25.7 % (42-54); IMMATURE GRANULOCYTE ABSOLUTE 0.34 K/uL (0-1); LYMPHOCYTES # (AUTO) 1.1 K/uL (1.0-4.8); LYMPHOCYTES % (AUTO) 3.6 % (21.0-51.0); MEAN CORPUSCULAR HEMOGLOBIN 31.3 pg (27.0-33.0); MEAN CORPUSCULAR HGB CONC 33.5 g/dL (32.0-36.0); MEAN CORPUSCULAR VOLUME 93.5 fL (79-99); MONOCYTES # (AUTO) 0.8 K/uL (0.1-1.0); MONOCYTES % (AUTO) 2.7 % (3.0-13.0); NUCLEATED RED BLOOD CELLS 0.1 % (0.0-0.19); PLATELET COUNT (AUTO) 406 K/uL (130-400); RED BLOOD CELL COUNT(AUTO) 2.75 MIL/uL (4.50-6.20); RED CELL DISTRIBUTION WIDTH 13.2 % (11.0-15.5); WHITE BLOOD COUNT (AUTO) 29.4 K/uL (4.8-10.8)
[2024-04-06 14:51] LABS: POTASSIUM 4.7 mmol/L (3.5-5.1)
[2024-04-06 15:19] LABS: B-TYPE NATRIURETIC PEPTIDE 120 pg/mL (0-100)
--- NOTE | 2024-04-06 15:30 | HMCIMG ---
US VENOUS DOPPLER BILATERAL HISTORY: Swelling COMPARISON: None TECHNIQUE: Bilateral lower extremity venous Doppler ultrasound study was performed. FINDINGS: The common femoral, femoral, popliteal, and posterior tibial veins are visualized. Normal flow with augmentation and compressibilities are demonstrated on the right. Normal compression is seen on the left.. The greater saphenous veins are also seen and grossly patent. IMPRESSION: 1. No evidence of deep venous thrombosis is seen.
--- NOTE | 2024-04-06 15:38 | EKG ---
[facility] Test Date: 2024-04-06 Test Time: 14:16:29 Pat Name: SERENA CARPENTER Department: ED Room: 401 Gender: M Rat Breeder: [id number] : 1950 Requested By: PAULINE KELLY Order Number: [id number] Reading MD: Jovany Christensen Measurements Intervals [place] Rate: 111 P: 63 [place]: 165 QRS: 16 QRSD: 85 T: 68 QT: 329 QTc: 448 Interpretive Statements Sinus tachycardia Posterior infarct, old Borderline ST depression, diffuse leads Compared to ECG 06/12/2021 13:58:54 Myocardial infarct finding now present ST (T wave) deviation now present Sinus rhythm no longer present Electronically Signed On 04-08-2024 18:32:56 CLINICAL INFORMATICS PHYSICIAN by Jovany Christensen Please click the below link to view image of tracing.
[2024-04-06] MEDS: cefTRIAXone 1G VIAL IVPB ONE (16:50)
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
[2024-04-06 16:54] LABS: APPEARANCE,URINE CLEAR (CLEAR); BILIRUBIN,URINE NEGATIVE (NEGATIVE); COLOR,URINE COLORLESS (YELLOW); GLUCOSE, URINE (UA) >=1000 mg/dL (NEGATIVE); KETONES,URINE NEGATIVE (NEGATIVE); LEUKOCYTE ESTERASE ,URINE NEGATIVE Leu/uL (NEGATIVE); NITRATE,URINE NEGATIVE (NEGATIVE); OCCULT BLOOD,URINE NEGATIVE (NEGATIVE); PROTEIN,URINE 30 mg/dL (NEGATIVE); UROBILINOGEN,URINE 0.2 mg/dL (0.2-1.0)
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
[2024-04-06 16:55] LABS: ADD UA MICROSCOPIC YES
[2024-04-06] MEDS: INSULIN humuLIN R 100 UNIT/ML 3ML IV ONE (16:55)
[2024-04-06 16:57] LABS: MUCUS,URINE RARE LPF (None Seen); RBC,URINE 0-1 /HPF (0-1); SQUAMOUS EPITHELIAL CELL,UR RARE /HPF (0-2)
[2024-04-06] MEDS: AZITHROMYCIN 500MG+NS 250ML 250 ML IVPB SCH (17:53)
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
[2024-04-06] MEDS ORDERED: LAbetaLOL 20MG SYG IV PRN (19:30)
[2024-04-06] MEDS ORDERED: acetaMINOPHEN 650 MG SUPPOSITORY RC PRN (19:30)
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
[2024-04-06] MEDS: LACTATED RINGERS 1000ML 1,000 ML IV SCH (19:47)
[2024-04-06 19:53] VITALS: PULSE 106; RESP 21; O2SAT 96
[2024-04-06] MEDS: INSULIN humuLIN R 100 UNIT/ML 3ML SQ SCH (21:17)
[2024-04-06] MEDS: hydrALAZine 20MG/ML VIAL IV PRN (23:08)
[2024-04-06] MEDS: INSULIN humuLIN R 100 UNIT/ML 3ML SQ ONE (23:09)
[2024-04-06 23:53] VITALS: PULSE 83; RESP 18
[2024-04-06] MEDS: SODIUM CHLORIDE 3% FOR INHALATION 4 ML/AMP VIAL.NEB IH ONE (23:53)
[2024-04-06] MEDS: IpraTROPium 0.5 MG/2.5 ML INH IH SCH (23:53)
[2024-04-07] VITALS (9 sets, daily range): BP systolic 112–151; BP diastolic 52–67; PULSE 73–108; RESP 16–21; TEMP 98.3–99.7; O2SAT 95–98
[2024-04-07 04:23] LABS: SARS-CoV-2, RNA, NAAT NEGATIVE SARS CoV-2 (NEGATIVE)
[2024-04-07 04:26] LABS: INFLUENZA TYPE A Negative For Type A (NEGATIVE); INFLUENZA TYPE B Negative For Type B (NEGATIVE)
[2024-04-07] MEDS ORDERED: INSLAN SQ (04:30)
[2024-04-07] MEDS ORDERED: INSU100I15 SQ (04:30)
[2024-04-07] MEDS: HYDROcodone/APAP 5/325 1 TAB TABLET PO PRN (05:50)
[2024-04-07 05:58] LABS: BASOPHILS # (AUTO) 0.04 K/uL (0.00-0.20); BASOPHILS % (AUTO) 0.2 % (0.0-5.0); EOSINOPHILS # (AUTO) 0.25 K/uL (0.00-0.70); EOSINOPHILS % (AUTO) 1.1 % (0.0-8.0); HEMATOCRIT 26.2 % (42-54); IMMATURE GRANULOCYTE ABSOLUTE 0.28 K/uL (0-1); LYMPHOCYTES # (AUTO) 1.5 K/uL (1.0-4.8); LYMPHOCYTES % (AUTO) 6.6 % (21.0-51.0); MEAN CORPUSCULAR HEMOGLOBIN 31.3 pg (27.0-33.0); MEAN CORPUSCULAR HGB CONC 32.8 g/dL (32.0-36.0); MEAN CORPUSCULAR VOLUME 95.3 fL (79-99); MONOCYTES # (AUTO) 0.8 K/uL (0.1-1.0); MONOCYTES % (AUTO) 3.3 % (3.0-13.0); NEUTROPHILS # (AUTO) 20.3 K/uL (1.8-7.7); NEUTROPHILS % (AUTO) 87.6 % (40.0-77.0); PLATELET COUNT (AUTO) 430 K/uL (130-400); RED BLOOD CELL COUNT(AUTO) 2.75 MIL/uL (4.50-6.20); RED CELL DISTRIBUTION WIDTH 13.3 % (11.0-15.5); WHITE BLOOD COUNT (AUTO) 23.2 K/uL (4.8-10.8)
[2024-04-07 06:07] LABS: MAGNESIUM 2.1 mg/dL (1.80-2.40)
[2024-04-07 06:28] LABS: CREATININE 1.5 mg/dL (0.5-1.3); PHOSPHORUS 3.1 mg/dL (2.5-4.9); POTASSIUM 4.2 mmol/L (3.5-5.1); THYROID STIMULATING HORMONE 9.32 uIU/mL (0.36-3.74)
[2024-04-07 07:13] LABS: B-TYPE NATRIURETIC PEPTIDE 203 pg/mL (0-100)
[2024-04-07] MEDS: polyETHYLene GLYCol 3350 17 GM POWD.PACK PO SCH (10:02)
[2024-04-07] MEDS: PANTOPrazole 40 MG TAB DR PO SCH (10:02)
[2024-04-07] MEDS: cefTRIAXone 1G VIAL IVP SCH (10:02)
[2024-04-07] MEDS: ASCORBIC ACID 500 MG TAB PO SCH (10:03)
[2024-04-07] MEDS: AZITHROMYCIN 500MG+NS 250ML IV SCH (11:20)
[2024-04-07 11:47] LABS: INR 0.94 (0.85-1.15); PROTHROMBIN TIME 10.2 SEC (9.6-11.6)
[2024-04-07 11:48] LABS: PARTIAL THROMBOPLASTIN TIME 26.5 SEC (26.3-35.5)
[2024-04-07] MEDS: SODIUM CHLORIDE 3% FOR INHALATION 4 ML/AMP VIAL.NEB IH ONE (13:19)
--- NOTE | 2024-04-07 14:54 | PN ---
[facility] PROGRESS NOTE Date Patient Seen: Apr 07, 2024 Time of Visit: 14:47 Supervising Physician: MD IGNACIO Primary Care Physician: Outpatient Specialists: [ ] Inpatient Consults: [ ] PROBLEM LIST: Community-acquired pneumonia, POA Acute kidney injury, POA Acute Right Ankle Sprain , POA Hypertension, POA Hyperlipidemia, POA Hypothyroidism, POA DM type, with hyperglycemia, poorly controlled Current day smoker, smoked one pack per day INTERVAL HISTORY: Patient was seen and examined today by me at bedside, he continues weak, deconditioned, complaining of cough. Patient was on room air with sats at 94- 98% . Overnight T-max of 99.7. Continues on IV antibiotic therapy for community-acquired pneumonia with azithromycin and Rocephin. As note the patient's leukocytosis is downtrending from 29 --> 23. Renal function reveals improvement on creatinine,2.0 -->1.5 Provider is at bedside.She brought home medications that will be entered in system REVIEW OF SYSTEMS: 12 point ROS reviewed with patient. Pertinent positives mentioned above. Otherwise negative. PHYSICAL EXAM: GENERAL: alert, weak, awake oriented x 3 HEENT: EOMI, Sclera non icteric, moist mucosa NECK: Supple, no JVD, trachea midline LUNGS: Clear breath sounds bilaterally. No wheezes HEART: Regular rate and rhythm. Normal S1 and S2, without murmurs ABD: Abdomen soft, nontender. Bowel sounds present EXT: Right ankle pain with swelling NEURO: Alert and oriented to person, follows commands Vital Signs (last 8hr) Date Time Temp Pulse Resp B/P (MAP) Pulse Ox O2 Delivery O2 Flow Rate FiO2 04/07/24 12:00 99.7 101 18 151/65 94 Room Air 04/07/24 11:00 94 18 04/07/24 08:00 96 Room Air* 0 21 04/07/24 08:00 98.4 73 16 112/52 96 Room Air 04/07/24 06:51 102 21 N/A Room Air 0.0 21 04/07/24 06:51 102 18 LABS: Hematology Labs: Test 04/07/24 04:51 04/06/24 14:24 Range/Units White Blood Count 23.2 H 4.8-10.8 K/uL Red Blood Count 2.75 L 4.50-6.20 MIL/uL Hemoglobin 8.6 L 14.0-18.0 g/dL Hematocrit 26.2 L 42-54 % Mean Corpuscular Volume 95.3 79-99 fL Mean Corpuscular Hemoglobin 31.3 27.0-33.0 pg Mean Corpuscular Hemoglobin Concent 32.8 32.0-36.0 g/dL Red Cell Distribution Width 13.3 11.0-15.5 % Platelet Count 430 H 130-400 K/uL Mean Platelet Volume 10.1 7.5-10.5 fL Immature Granulocyte % (Auto) 1.2 H 0-1 % Neutrophils (%) (Auto) 87.6 H 40.0-77.0 % Lymphocytes (%) (Auto) 6.6 L 21.0-51.0 % Monocytes (%) (Auto) 3.3 3.0-13.0 % Eosinophils (%) (Auto) 1.1 0.0-8.0 % Basophils (%) (Auto) 0.2 0.0-5.0 % Neutrophils # (Auto) 20.3 H 1.8-7.7 K/uL Lymphocytes # (Auto) 1.5 1.0-4.8 K/uL Monocytes # (Auto) 0.8 0.1-1.0 K/uL Eosinophils # (Auto) 0.25 0.00-0.70 K/uL Basophils # (Auto) 0.04 0.00-0.20 K/uL Absolute Immature Granulocyte (auto 0.28 0-1 K/uL Nucleated Red Blood Cells 0.0 0.0-0.19 % White Cell Morphology Comment See comments Chemistry Labs: Test 04/07/24 12:02 04/07/24 04:51 04/06/24 15:31 04/06/24 14:24 Range/Units Whole Blood Glucose 190 H 70-110 MG/DL Sodium Level 138 136-145 mmol/L Potassium Level 4.2 3.5-5.1 mmol/L Chloride Level 107 101-111 mmol/L Carbon Dioxide Level 21 21-32 mmol/L Blood Urea Nitrogen 33 H 7-18 mg/dL Creatinine 1.5 H 0.5-1.3 mg/dL Glomerular Filtration Rate Calc 49 >90 mL/min Random Glucose 111 #H 70-105 mg/dL Total Calcium 8.7 8.5-10.1 mg/dL Phosphorus Level 3.1 2.5-4.9 mg/dL Magnesium Level 2.10 1.80-2.40 mg/dL B-Type Natriuretic Peptide 203 H 0-100 pg/mL Thyroid Stimulating Hormone (TSH) 9.32 #H 0.36-3.74 uIU/mL Lactic Acid Level 2.0 0.8-2.5 mmol/L Procalcitonin 1.10 H 0.05-0.5 ng/mL Total Creatine Kinase 74 21-232 U/L Troponin I High Sensitivity 30 4-75 ng/L Coagulation Labs: Test 04/07/24 11:04 Range/Units Prothrombin Time 10.2 9.6-11.6 SEC Prothromb Time International Ratio 0.94 0.85-1.15 Activated Partial Thromboplast Time 26.5 26.3-35.5 SEC DIAGNOSTICS / RADIOLOGY RESULTS: US VENOUS DOPPLER BILATERAL HISTORY: Swelling COMPARISON: None TECHNIQUE: Bilateral lower extremity venous Doppler ultrasound study was performed. FINDINGS: The common femoral, femoral, popliteal, and posterior tibial veins are visualized. Normal flow with augmentation and compressibilities are demonstrated on the right. Normal compression is seen on the left.. The greater saphenous veins are also seen and grossly patent. IMPRESSION: 1. No evidence of deep venous thrombosis is seen. PLAN NEURO: Minimize central acting medications as possible. Maintain fall precautions, adequate lighting during the day PULMONARY: Supplemental 02 as needed. Maintain aspiration precautions at all times Atrovent, pulmicort, and CPT. sputum culture Head of Bed Elevated at all times CXR in AM CARDIOVASCULAR: Follow hemodynamics. Vital signs per facility protocol Echo GI & NUTRITION: Continue with nutritional support. Continue stool softeners and laxatives as needed. KIDNEYS & ELECTROLYTES: Strict monitoring of intake, output and overall fluid balance. Avoid nephrotoxic medications to the extent possible. Medications to be dosed according to renal function. Monitor electrolytes and replace as needed Bladder scan , he does report straining occasionally PSA levels , start flomax ENDOCRINE: Maintain blood glucose between 100-180 at all times. Hypoglycemia protocol in place INFECTIOUS DISEASE: Trend temperature, WBC and procalcitonin level Follow cultures, deescalate antibiotics as soon as possible. Panculture if new onset fever ONCOLOGY/HEMATOLOGY/COAGULATION: Monitor for s/s of bleeding Monitor hemoglobin, coagulation studies as needed SKIN: Pressure ulcer prevention per facility protocol Specialty mattress ORTHO/REHAB: Continue PT/OT Prophylaxis: Continue GI and DVT prophylaxis Code Status: Full Resuscitation Disposition: home once stable DOLORES RINCON Apr 07, 2024 14:54
[2024-04-07] MEDS ORDERED: MELO-108 PO (16:04)
[2024-04-07] MEDS ORDERED: AMLO-258 PO (16:04)
[2024-04-07] MEDS ORDERED: RIVA2.5T PO (16:04)
[2024-04-07] MEDS ORDERED: CILO100T3 PO (16:04)
[2024-04-07] MEDS ORDERED: ASPI-1005 PO (16:04)
[2024-04-07] MEDS ORDERED: CLOP-31 PO (16:04)
[2024-04-07] MEDS ORDERED: VITAD50000 PO (16:04)
[2024-04-07] MEDS ORDERED: LISI40TA9 PO (16:04)
[2024-04-07] MEDS ORDERED: EMPA25TA PO (16:04)
[2024-04-07] MEDS ORDERED: ROSU20TA98 PO (16:04)
[2024-04-07] MEDS: BUDESONIDE 0.5 MG/2 ML INH IH ONE (19:01)
[2024-04-07] MEDS: BUDESONIDE 0.5 MG/2 ML INH IH SCH (21:00)
[2024-04-07] MEDS: tamSULOsin HCL 0.4 MG CAP.ER.24H PO SCH (21:51)
[2024-04-07] MEDS: acetaMINOPHEN 325 MG TAB PO PRN (21:55)
--- NOTE | 2024-04-07 22:09 | HMCSR ---
APPROVED REPORT EXAM: Two-dimensional and M-mode echocardiogram with Doppler and color Doppler. INDICATION ICD: Heart Failure 2D Dimensions RVDd3.3 cmLVEF(%)49.1 (>50%)LVED Vol(simp.)127.0 mL IVSd1.0 (0.7-1.1cm)FS(%)24 %LVES Vol(simp.)50.0 mL LVDd3.7 (3.8-5.6cm)LA (2D)3.4 (1.6-4.0cm)LVEF(%, simp.)61 % PWd1.2 (0.7-1.1cm)Ao Root(2D)3.4 (2.0-3.7cm)LA ESV INDEX (4CH)22.50 mL/m2 IVSs1.5 cmLVOT diam1.9 (1.8-2.4cm)LA ESV INDEX (2CH)27.30 mL/m2 LVDs2.8 (2.5-4.0cm)IVC diam2.2 cmLA ESV INDEX (BP)25.00 mL/m2 PWs1.5 cm M-Mode Dimensions EPSS0.1 cm LA (MM)3.1 (1.6-4.0cm) Ao Root(MM)2.9 (2.0-3.7cm) Aortic Valve AoV VTI0.4 mAo Mean GR14.0 mmHgLVOT VTI0.17 m ARIADNA (VMAX)1.4 cm2AVA (VTI) 1.4 cm2 Mitral Valve MV E Vmax98.2 cm/sDECEL Ugrn837 ms MV A Spbe363.2 cm/sP 1/2 T43 ms E/A ratio1.0MVA (PHT)5.2 cm2 TDI E/E' Dyoaaq39.9E/E' Lateral6.9 Medial E' Peak V9.00 cm/sLateral E' Peak V14.30 cm/s Pulmonary Valve PV Vmax1.2 m/s PV Peak GR6.0 mmHg Left Ventricle The left ventricle is mildly dilated. There is normal LV segmental wall motion. There is normal left ventricular wall thickness. LVEF is 60-65%. The left ventricular diastolic function is normal. Right Ventricle The right ventricle is normal size. The right ventricular systolic function is normal. Atria The left atrium size is normal. The right atrium is mildly dilated. Aortic Valve The aortic valve is moderately thickened but opens well. No aortic regurgitation is present. There is mild valvular aortic stenosis. Highest mean aortic valve gradient is 14mmHg. Peak aortic valve gradi ent is 24mmHg. Mitral Valve The mitral valve is normal in structure. There is no mitral valve regurgitation noted. There is no mi tral valve stenosis. Tricuspid Valve The tricuspid valve is normal in structure. There is no tricuspid valve regurgitation noted. Pulmonic Valve The pulmonary valve is normal in structure. There is no pulmonic valvular regurgitation. Great Vessels The aortic root is normal in size. The IVC is normal in size and collapses >50% with inspiration. Pericardium There is no pericardial effusion. Conclusion LVEF is 60-65%. There is mild valvular aortic stenosis. Highest mean aortic valve gradient is 14mmHg. Peak aortic valve gradient is 24mmHg.
[2024-04-08] VITALS (12 sets, daily range): BP systolic 123–150; BP diastolic 56–69; PULSE 88–105; RESP 16–20; TEMP 97.5–98.4; O2SAT 94–95
[2024-04-08] MEDS: levoTHYROxine 50 MCG TABLET PO SCH (06:05)
[2024-04-08 06:10] LABS: BASOPHILS # (AUTO) 0.04 K/uL (0.00-0.20); BASOPHILS % (AUTO) 0.2 % (0.0-5.0); EOSINOPHILS # (AUTO) 0.43 K/uL (0.00-0.70); EOSINOPHILS % (AUTO) 2.4 % (0.0-8.0); HEMATOCRIT 21.5 % (42-54); LYMPHOCYTES # (AUTO) 1.6 K/uL (1.0-4.8); LYMPHOCYTES % (AUTO) 8.8 % (21.0-51.0); MEAN CORPUSCULAR HEMOGLOBIN 31.4 pg (27.0-33.0); MEAN CORPUSCULAR VOLUME 95.1 fL (79-99); MONOCYTES # (AUTO) 0.7 K/uL (0.1-1.0); MONOCYTES % (AUTO) 3.9 % (3.0-13.0); NEUTROPHILS # (AUTO) 14.9 K/uL (1.8-7.7); NEUTROPHILS % (AUTO) 83.6 % (40.0-77.0); NUCLEATED RED BLOOD CELLS 0.1 % (0.0-0.19); PLATELET COUNT (AUTO) 360 K/uL (130-400); RED BLOOD CELL COUNT(AUTO) 2.26 MIL/uL (4.50-6.20); RED CELL DISTRIBUTION WIDTH 13.5 % (11.0-15.5); WHITE BLOOD COUNT (AUTO) 17.8 K/uL (4.8-10.8)
[2024-04-08 06:12] LABS: ALBUMIN 1.7 g/dL (3.5-5.0); BILIRUBIN,TOTAL 0.2 mg/dL (0.2-1.0); CREATININE 1.2 mg/dL (0.5-1.3); POTASSIUM 3.7 mmol/L (3.5-5.1); TOTAL PROTEIN, SERUM 5.6 g/dL (6.0-8.3)
[2024-04-08 06:29] LABS: HEMOGLOBIN A1C 9.6 % (4.0-6.0)
[2024-04-08 07:51] LABS: BASOPHILS # (AUTO) 0.06 K/uL (0.00-0.20); BASOPHILS % (AUTO) 0.3 % (0.0-5.0); EOSINOPHILS # (AUTO) 0.48 K/uL (0.00-0.70); EOSINOPHILS % (AUTO) 2.5 % (0.0-8.0); HEMATOCRIT 23.1 % (42-54); IMMATURE GRANULOCYTE ABSOLUTE 0.15 K/uL (0-1); LYMPHOCYTES # (AUTO) 1.9 K/uL (1.0-4.8); LYMPHOCYTES % (AUTO) 9.9 % (21.0-51.0); MEAN CORPUSCULAR HEMOGLOBIN 30.8 pg (27.0-33.0); MEAN CORPUSCULAR VOLUME 96.3 fL (79-99); MONOCYTES # (AUTO) 0.7 K/uL (0.1-1.0); MONOCYTES % (AUTO) 3.7 % (3.0-13.0); NEUTROPHILS # (AUTO) 15.7 K/uL (1.8-7.7); NEUTROPHILS % (AUTO) 82.8 % (40.0-77.0); PLATELET COUNT (AUTO) 395 K/uL (130-400); RED CELL DISTRIBUTION WIDTH 13.4 % (11.0-15.5)
[2024-04-08 09:50] LABS: RETICULOCYTE % (AUTO) 3.52 % (0.42-2.23)
--- NOTE | 2024-04-08 10:00 | HMCIMG ---
CHEST 1VW HISTORY: Congestion COMPARISON: 04/06/2024 FINDINGS: A frontal projection of the chest was obtained. Mild right lung pulmonary infiltrates are seen. The heart is borderline enlarged. Degenerative changes are seen. Aortic calcifications are seen. IMPRESSION: 1. Mild right lung pulmonary infiltrates.
--- NOTE | 2024-04-08 11:21 | HMCIMG ---
CT CHEST W/O CONTRAST HISTORY: Pneumonia COMPARISON: None TECHNIQUE: Multiple sequential axial images of the chest were obtained from the thoracic inlet through upper abdomen. Patient was not given contrast through intravenous route. FINDINGS: There is no evidence of pulmonary nodule or parenchymal disease. There is right pleural effusion with compressive atelectasis. Mild interstitial fibrotic changes are seen. Coronary arterial calcifications are seen. There is no evidence of pneumothorax. There are normal size mediastinal and hilar lymph nodes. The heart is not enlarged. Degenerative changes of the thoracolumbar spine are present. There is no evidence of adrenal nodule. IMPRESSION: 1. No evidence of pulmonary nodule or effusion is seen. Right pleural effusion with compressive atelectasis. CT was performed with one or more following dose reduction techniques: automated exposure control, adjustment of the mA and kv according to patient's size, or use of a iterative reconstruction technique.
[2024-04-08] MEDS: IRON sUCROse COMPLEX 100 MG/5 ML VIAL IV ONE ×2 (13:45→16:31)
--- NOTE | 2024-04-08 13:56 | PN ---
[facility] PROGRESS NOTE Date Patient Seen: Apr 08, 2024 Time of Visit: 13:24 Supervising Physician: ELAINA ELIAS MD Primary Care Physician: Outpatient Specialists: [ ] Inpatient Consults: UROLOGY - ASASE , PROBLEM LIST: Sepsis , POA Community-acquired pneumonia, with Right Sided small Pleural Effusion, POA Acute kidney injury, multifactorial , improved Obstructive Uropathy suspected secondary to BPH s/p Oconnor placement on 04/07/24 Acute Grade III Right Ankle Sprain , POA Iron deficiency Anemia Hypertension, POA Hyperlipidemia, POA Hypothyroidism, POA DM type, with hyperglycemia, poorly controlled, A1c of 9.6% Current day smoker, smoked one pack per day PAD hx of balloon angioplasty Mild Aortic Stenosis , EF of 60% INTERVAL HISTORY: Patient was seen and examined today by me at bedside, he continues weak, deconditioned, complaining of cough. Sats at 95% on room air Of Note CT chest reveals RLL infiltrate, with Atelectasis and small effusion ( Of note he has been on LR at 125cc/hr since admission for PHIL , we will stop fluids and repeat CXR in AM ) Continues on IV antibiotic therapy for community-acquired pneumonia with azithromycin and Rocephin. As note the patient's leukocytosis is downtrending from 29 --> 23->19 Renal function reveals improvement on creatinine,2.0 -->1.5->1.2 Of Note Hemoglobin is downtrending from 8.4->7.0, + Iron deficency on labs, started on Venofer He continues to complain of RLE pain , edema is 2+ on RLE , Venos doppler negative. XR revealing soft tissue swelling ,however our sucpision for occult fx is high, will proceed with TIB fib xr and MRI of Ankle IF no fracture is evident we will proceed with placing this patient in a WALKING BOOT and will participate with pt/ot . Discussed referall to SNF REVIEW OF SYSTEMS: 12 point ROS reviewed with patient. Pertinent positives mentioned above. Otherwise negative. PHYSICAL EXAM: GENERAL: alert, weak, awake oriented x 3 HEENT: EOMI, Sclera non icteric, moist mucosa NECK: Supple, no JVD, trachea midline LUNGS: Clear breath sounds bilaterally. No wheezes HEART: Regular rate and rhythm. Normal S1 and S2, without murmurs ABD: Abdomen soft, nontender. Bowel sounds present EXT: Right ankle pain with swelling NEURO: Alert and oriented to person, follows commands Vital Signs (last 8hr) Date Time Temp Pulse Resp B/P (MAP) Pulse Ox O2 Delivery O2 Flow Rate FiO2 04/08/24 12:00 97.5 100 16 123/58 96 Room Air 04/08/24 08:00 97.9 89 16 150/60 97 Room Air 04/08/24 06:32 94 18 04/08/24 06:31 95 20 N/A Room Air 0.0 21 LABS: Hematology Labs: Test 04/08/24 07:46 04/08/24 05:59 04/06/24 14:24 Range/Units White Blood Count 19.0 H 4.8-10.8 K/uL Red Blood Count 2.40 L 4.50-6.20 MIL/uL Hemoglobin 7.4 L 14.0-18.0 g/dL Hematocrit 23.1 L 42-54 % Mean Corpuscular Volume 96.3 79-99 fL Mean Corpuscular Hemoglobin 30.8 27.0-33.0 pg Mean Corpuscular Hemoglobin Concent 32.0 32.0-36.0 g/dL Red Cell Distribution Width 13.4 11.0-15.5 % Platelet Count 395 130-400 K/uL Mean Platelet Volume 9.6 7.5-10.5 fL Immature Granulocyte % (Auto) 0.8 0-1 % Neutrophils (%) (Auto) 82.8 H 40.0-77.0 % Lymphocytes (%) (Auto) 9.9 L 21.0-51.0 % Monocytes (%) (Auto) 3.7 3.0-13.0 % Eosinophils (%) (Auto) 2.5 0.0-8.0 % Basophils (%) (Auto) 0.3 0.0-5.0 % Neutrophils # (Auto) 15.7 H 1.8-7.7 K/uL Lymphocytes # (Auto) 1.9 1.0-4.8 K/uL Monocytes # (Auto) 0.7 0.1-1.0 K/uL Eosinophils # (Auto) 0.48 0.00-0.70 K/uL Basophils # (Auto) 0.06 0.00-0.20 K/uL Absolute Immature Granulocyte (auto 0.15 0-1 K/uL Nucleated Red Blood Cells 0.0 0.0-0.19 % Reticulocyte Count (auto) 3.72403 H 0.42-2.23 % Immature Reticulocyte Fraction 28.50 H 0.18-0.48 % White Cell Morphology Comment See comments Chemistry Labs: Test 04/08/24 11:18 04/08/24 05:59 04/08/24 05:08 04/07/24 04:51 Range/Units Whole Blood Glucose 292 #H 70-110 MG/DL Hemoglobin A1c 9.6 H 4.0-6.0 % Estimated Average Glucose (eAG) 229 H 70-126 mg/dL Iron Level 6 L 65-175 mcg/dL Total Iron Binding Capacity 197 L 250-450 mcg/dL Percent Iron Saturation 3.0 L 30-44 % Ferritin 210 30-400 ng/mL Vitamin B12 Level 388 193-986 pg/mL Sodium Level 135 L 136-145 mmol/L Potassium Level 3.7 3.5-5.1 mmol/L Chloride Level 104 101-111 mmol/L Carbon Dioxide Level 21 21-32 mmol/L Blood Urea Nitrogen 21 H 7-18 mg/dL Creatinine 1.2 0.5-1.3 mg/dL Glomerular Filtration Rate Calc 64 >90 mL/min Random Glucose 112 H 70-105 mg/dL Total Calcium 8.2 L 8.5-10.1 mg/dL Total Bilirubin 0.2 0.2-1.0 mg/dL Aspartate Amino Transf (AST/SGOT) 15 10-37 U/L Alanine Aminotransferase (ALT/SGPT) 21 12-78 U/L Alkaline Phosphatase 137 H 50-136 U/L Total Protein 5.6 L 6.0-8.3 g/dL Albumin 1.7 L 3.5-5.0 g/dL Phosphorus Level 3.1 2.5-4.9 mg/dL Magnesium Level 2.10 1.80-2.40 mg/dL B-Type Natriuretic Peptide 203 H 0-100 pg/mL Thyroid Stimulating Hormone (TSH) 9.32 #H 0.36-3.74 uIU/mL Test 04/06/24 15:31 04/06/24 14:24 Range/Units Lactic Acid Level 2.0 0.8-2.5 mmol/L Procalcitonin 1.10 H 0.05-0.5 ng/mL Total Creatine Kinase 74 21-232 U/L Troponin I High Sensitivity 30 4-75 ng/L Coagulation Labs: Test 04/07/24 11:04 Range/Units Prothrombin Time 10.2 9.6-11.6 SEC Prothromb Time International Ratio 0.94 0.85-1.15 Activated Partial Thromboplast Time 26.5 26.3-35.5 SEC DIAGNOSTICS / RADIOLOGY RESULTS: [ ] PLAN NEURO: Minimize central acting medications as possible. Maintain fall precautions, adequate lighting during the day PULMONARY: Supplemental 02 as needed. Maintain aspiration precautions at all times Atrovent, Pulmicort, and CPT. sputum culture Head of Bed Elevated at all times CXR in AM CARDIOVASCULAR: Follow hemodynamics. Vital signs per facility protocol Echo Patient was on multiple antiplatelet and anticoagulant medications. Prior records revealed that he should have only been on aspirin and Plavix for six months as a result we will discontinue Plavix at this time. He was also supposed to discontinue Pletal during his time with aspirin and Plavix at this time we will hold it and allow Cardiology to resume it at their discretion. There was also Eliquis which we are uncertain as to why he was taken this. Patient was not a very good historian. Given his anemia we will continue aspirin at this time while we await further clarification on his anticoagulant. There is no history of atrial fibrillation, or DVTs that are present at the moment GI & NTRITION: Continue with nutritional support. Continue stool softeners and laxatives as needed. KIDNEYS & ELECTROLYTES: Strict monitoring of intake, output and overall fluid balance. Avoid nephrotoxic medications to the extent possible. Medications to be dosed according to renal function. Monitor electrolytes and replace as needed PSA levels , start flomax , Oconnor in place and consult urology ENDOCRINE: Maintain blood glucose between 100-180 at all times. Hypoglycemia protocol in place INFECTIOUS DISEASE: Trend temperature, WBC and procalcitonin level Follow cultures, deescalate antibiotics as soon as possible. Panculture if new onset fever ONCOLOGY/HEMATOLOGY/COAGULATION: Monitor for s/s of bleeding Monitor hemoglobin, coagulation studies as needed + Iron sudies , starrt venofer x 1 today No melena reported per nursing staff REcommend GI consult if hg continues to downtrend CLARIFY HIS HOME MEDICATION HE WAS ON ASA, PLAVIX, PLETAL, ELIQUIS ALL AT ONCE ! SKIN: Pressure ulcer prevention per facility protocol Specialty mattress ORTHO/REHAB: Continue PT/OT Prophylaxis: Continue GI and DVT prophylaxis WITH PROTONIX AND SCD RESPECTIVELY Code Status: Full Resuscitation Disposition: SNF FOR PT/OT TOTAL CRITICAL CARE TIME SPENT ON THIS PATIENT IS 55 MINUTES DOLOERS RINCON Apr 08, 2024 13:56
--- NOTE | 2024-04-08 14:39 | HMCIMG ---
TIBIA/FIBULA 2VWS RT HISTORY: Fracture COMPARISON: None TECHNIQUE: 4 images of right tibia and fibula were obtained. FINDINGS: There is no acute displaced fracture or dislocation. There is soft tissue swelling. There is a calcaneal spur. Degenerative changes are seen. IMPRESSION: 1. Findings as described above.
[2024-04-08] MEDS: NICOTINE 21 MG/ 24 HR PATCH TD ONE (15:40)
[2024-04-08] MEDS ORDERED: CILOstazol 100 MG TAB PO SCH (21:00)
[2024-04-09] VITALS (14 sets, daily range): BP systolic 130–160; BP diastolic 60–74; PULSE 95–109; RESP 18–22; TEMP 98–98.7; O2SAT 89–97
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
[2024-04-09 05:02] LABS: BASOPHILS # (AUTO) 0.04 K/uL (0.00-0.20); BASOPHILS % (AUTO) 0.3 % (0.0-5.0); EOSINOPHILS # (AUTO) 0.37 K/uL (0.00-0.70); EOSINOPHILS % (AUTO) 2.7 % (0.0-8.0); HEMATOCRIT 22.4 % (42-54); IMMATURE GRANULOCYTE ABSOLUTE 0.09 K/uL (0-1); LYMPHOCYTES # (AUTO) 1.6 K/uL (1.0-4.8); LYMPHOCYTES % (AUTO) 11.4 % (21.0-51.0); MEAN CORPUSCULAR HEMOGLOBIN 30.3 pg (27.0-33.0); MEAN CORPUSCULAR HGB CONC 32.1 g/dL (32.0-36.0); MEAN CORPUSCULAR VOLUME 94.1 fL (79-99); MONOCYTES # (AUTO) 0.7 K/uL (0.1-1.0); MONOCYTES % (AUTO) 5.1 % (3.0-13.0); NEUTROPHILS % (AUTO) 79.8 % (40.0-77.0); NUCLEATED RED BLOOD CELLS 0.4 % (0.0-0.19); PLATELET COUNT (AUTO) 456 K/uL (130-400); RED BLOOD CELL COUNT(AUTO) 2.38 MIL/uL (4.50-6.20); RED CELL DISTRIBUTION WIDTH 13.4 % (11.0-15.5); WHITE BLOOD COUNT (AUTO) 13.8 K/uL (4.8-10.8)
[2024-04-09 05:16] LABS: ALBUMIN 1.7 g/dL (3.5-5.0); BILIRUBIN,TOTAL 0.2 mg/dL (0.2-1.0); CREATININE 1.2 mg/dL (0.5-1.3); POTASSIUM 4.2 mmol/L (3.5-5.1); TOTAL PROTEIN, SERUM 5.9 g/dL (6.0-8.3)
[2024-04-09 05:27] LABS: B-TYPE NATRIURETIC PEPTIDE 258 pg/mL (0-100)
[2024-04-09] MEDS ORDERED: levoTHYROxine 50 MCG TABLET PO SCH (09:00)
[2024-04-09] MEDS ORDERED: cloPIDOgrel 75MG TAB PO SCH (09:00)
[2024-04-09] MEDS: ASPIRIN 81MG CHEW TAB PO SCH (09:36)
[2024-04-09] MEDS: amLODIPine 5 MG TAB PO SCH (09:36)
--- NOTE | 2024-04-09 10:01 | HMCIMG ---
CT ABDOMEN/PELVIS W/O CONTRAST HISTORY: Urinary retention COMPARISON: 08/20/2023 TECHNIQUE: Multiple sequential axial images of the abdomen and pelvis were obtained from the dome of the diaphragm through symphysis pubis. Patient was not given contrast through intravenous route. Oral contrast was not given. FINDINGS: There is moderate size right pleural effusion with compressive atelectasis. Tiny left pleural effusion is seen. There is no evidence of parenchymal disease or pulmonary nodule of the visualized lower lungs. Degenerative changes of the thoracolumbar spine are present. The heart is not enlarged. Liver is enlarged measuring 18 cm. Gallbladder is distended. The liver, spleen, adrenal glands and pancreas are unremarkable. There is no evidence of hydronephrosis bilaterally. No evidence of renal stone is seen. Fecal material is seen in the colon. There are normal size retroperitoneal and mesenteric lymph nodes. No ascites is seen. Atherosclerotic changes are present. Appendix is not well seen limiting evaluation. There is diverticulosis. Pelvic sidewalls are symmetric bilaterally. Bladder is poorly distended with bladder wall thickening measuring 11 mm in thickness. Oconnor catheter is seen with distal tip in the bladder. If there is clinical suspicion for cystitis, urinalysis correlation may be helpful. IMPRESSION: 1. Bladder is poorly distended with bladder wall thickening measuring 11 mm in thickness. Oconnor catheter is seen with distal tip in the bladder. If there is clinical suspicion for cystitis, urinalysis correlation may be helpful. 2. Large amount of fecal material is seen in the colon. There is diverticulosis. CT was performed with one or more following dose reduction techniques: automated exposure control, adjustment of the mA and kv according to patient's size, or use of a iterative reconstruction technique.
--- NOTE | 2024-04-09 11:40 | HMCIMG ---
MR ANKLE RIGHT WO HISTORY: Persistent pain and injury COMPARISON: None TECHNIQUE: MRI of the right ankle was performed utilizing multiple pulse sequences in axial, coronal and sagittal planes. Patient was not given contrast through intravenous route. FINDINGS: There is bony lesion noted in the medial malleolus of the distal tibia measuring 2 x 1.4 cm. No adjacent soft tissue mass is seen. Differential diagnosis would include bone infarct versus bone tumor. Mild soft tissue swelling is seen. A small calcaneal spur is seen. No appreciable amount of joint effusion is seen. No evidence of soft tissue swelling is seen. No rupture or Achilles tendon is seen. Posterior tibialis, flexor hallucis longus and flexor digitorum longus tendons are intact. The peroneus longus and brevis tendons are intact. Anterior talofibular ligament and calcaneofibular ligaments are intact. IMPRESSION: 1. There is bony lesion noted in the medial malleolus of the distal tibia measuring 2 x 1.4 cm. No adjacent soft tissue mass is seen. Differential diagnosis would include bone infarct versus bone tumor. Mild soft tissue swelling is seen. A small calcaneal spur is seen.
--- NOTE | 2024-04-09 21:04 | PN ---
[facility] PROGRESS NOTE Date Patient Seen: Apr 09, 2024 Time of Visit: 21:01 Supervising Physician: JANIS GEORGE MD Primary Care Physician: Outpatient Specialists: [ ] Inpatient Consults: UROLOGY - ASASE , PROBLEM LIST: Sepsis , POA Community-acquired pneumonia, with Right Sided small Pleural Effusion, POA Acute kidney injury, multifactorial , improved Obstructive Uropathy suspected secondary to BPH s/p Oconnor placement on 04/07/24 Acute Grade III Right Ankle Sprain , POA no evidence of fracture on x-ray Iron deficiency Anemia Hypertension, POA Hyperlipidemia, POA Hypothyroidism, POA DM type, with hyperglycemia, poorly controlled, A1c of 9.6% Current day smoker, smoked one pack per day PAD hx of balloon angioplasty Mild Aortic Stenosis , EF of 60% INTERVAL HISTORY: Patient is doing well Laboratory results reviewed Pain is well controlled No distress, some cough, dyspnea on exertion good appetite, no nausea or vomiting good urinary output REVIEW OF SYSTEMS: 12 point ROS reviewed with patient. Pertinent positives mentioned above. Otherwise negative. PHYSICAL EXAM: GENERAL: alert, weak, awake oriented x 3 HEENT: EOMI, Sclera non icteric, moist mucosa NECK: Supple, no JVD, trachea midline LUNGS: Clear breath sounds bilaterally. No wheezes HEART: Regular rate and rhythm. Normal S1 and S2, without murmurs ABD: Abdomen soft, nontender. Bowel sounds present EXT: Right ankle pain with swelling NEURO: Alert and oriented to person, follows commands Vital Signs (last 8hr) Date Time Temp Pulse Resp B/P (MAP) Pulse Ox O2 Delivery O2 Flow Rate FiO2 04/09/24 19:54 98.1 102 22 152/73 96 Room Air 04/09/24 19:09 103 20 N/A Room Air 0.0 21 04/09/24 19:08 102 18 04/09/24 16:00 98.2 98 19 160/74 93 Room Air LABS: Hematology Labs: Test 04/09/24 04:42 04/08/24 05:59 Range/Units White Blood Count 13.8 #H 4.8-10.8 K/uL Red Blood Count 2.38 L 4.50-6.20 MIL/uL Hemoglobin 7.2 L 14.0-18.0 g/dL Hematocrit 22.4 L 42-54 % Mean Corpuscular Volume 94.1 79-99 fL Mean Corpuscular Hemoglobin 30.3 27.0-33.0 pg Mean Corpuscular Hemoglobin Concent 32.1 32.0-36.0 g/dL Red Cell Distribution Width 13.4 11.0-15.5 % Platelet Count 456 H 130-400 K/uL Mean Platelet Volume 9.9 7.5-10.5 fL Immature Granulocyte % (Auto) 0.7 0-1 % Neutrophils (%) (Auto) 79.8 H 40.0-77.0 % Lymphocytes (%) (Auto) 11.4 L 21.0-51.0 % Monocytes (%) (Auto) 5.1 3.0-13.0 % Eosinophils (%) (Auto) 2.7 0.0-8.0 % Basophils (%) (Auto) 0.3 0.0-5.0 % Neutrophils # (Auto) 11.0 H 1.8-7.7 K/uL Lymphocytes # (Auto) 1.6 1.0-4.8 K/uL Monocytes # (Auto) 0.7 0.1-1.0 K/uL Eosinophils # (Auto) 0.37 0.00-0.70 K/uL Basophils # (Auto) 0.04 0.00-0.20 K/uL Absolute Immature Granulocyte (auto 0.09 0-1 K/uL Nucleated Red Blood Cells 0.4 H 0.0-0.19 % Reticulocyte Count (auto) 3.78978 H 0.42-2.23 % Immature Reticulocyte Fraction 28.50 H 0.18-0.48 % Chemistry Labs: Test 04/09/24 19:18 04/09/24 04:42 04/08/24 05:59 Range/Units Whole Blood Glucose 338 H 70-110 MG/DL Sodium Level 134 L 136-145 mmol/L Potassium Level 4.2 3.5-5.1 mmol/L Chloride Level 101 101-111 mmol/L Carbon Dioxide Level 22 21-32 mmol/L Blood Urea Nitrogen 19 H 7-18 mg/dL Creatinine 1.2 0.5-1.3 mg/dL Glomerular Filtration Rate Calc 64 >90 mL/min Random Glucose 234 #H 70-105 mg/dL Total Calcium 8.2 L 8.5-10.1 mg/dL Magnesium Level 1.90 1.6-2.6 mg/dL Total Bilirubin 0.2 0.2-1.0 mg/dL Aspartate Amino Transf (AST/SGOT) 16 10-37 U/L Alanine Aminotransferase (ALT/SGPT) 26 # 12-78 U/L Alkaline Phosphatase 167 H 50-136 U/L B-Type Natriuretic Peptide 258 H 0-100 pg/mL Total Protein 5.9 L 6.0-8.3 g/dL Albumin 1.7 L 3.5-5.0 g/dL Hemoglobin A1c 9.6 H 4.0-6.0 % Estimated Average Glucose (eAG) 229 H 70-126 mg/dL Iron Level 6 L 65-175 mcg/dL Total Iron Binding Capacity 197 L 250-450 mcg/dL Percent Iron Saturation 3.0 L 30-44 % Ferritin 210 30-400 ng/mL Vitamin B12 Level 388 193-986 pg/mL DIAGNOSTICS / RADIOLOGY RESULTS: [ Imaging scans do not show evidence of fracture ] PLAN Orthopedic consult NEURO: Minimize central acting medications as possible. Maintain fall precautions, adequate lighting during the day PULMONARY: Supplemental 02 as needed. Maintain aspiration precautions at all times Atrovent, Pulmicort, and CPT. sputum culture Head of Bed Elevated at all times CXR in AM CARDIOVASCULAR: Follow hemodynamics. Vital signs per facility protocol Echo Patient was on multiple antiplatelet and anticoagulant medications. Prior records revealed that he should have only been on aspirin and Plavix for six months as a result we will discontinue Plavix at this time. He was also supposed to discontinue Pletal during his time with aspirin and Plavix at this time we will hold it and allow Cardiology to resume it at their discretion. There was also Eliquis which we are uncertain as to why he was taken this. Patient was not a very good historian. Given his anemia we will continue aspirin at this time while we await further clarification on his anticoagulant. There is no history of atrial fibrillation, or DVTs that are present at the moment GI & NTRITION: Continue with nutritional support. Continue stool softeners and laxatives as needed. KIDNEYS & ELECTROLYTES: Strict monitoring of intake, output and overall fluid balance. Avoid nephrotoxic medications to the extent possible. Medications to be dosed according to renal function. Monitor electrolytes and replace as needed PSA levels , start flomax , Oconnor in place and consult urology ENDOCRINE: Maintain blood glucose between 100-180 at all times. Hypoglycemia protocol in place INFECTIOUS DISEASE: Trend temperature, WBC and procalcitonin level Follow cultures, deescalate antibiotics as soon as possible. Panculture if new onset fever ONCOLOGY/HEMATOLOGY/COAGULATION: Monitor for s/s of bleeding Monitor hemoglobin, coagulation studies as needed + Iron sudies , starrt venofer x 1 today No melena reported per nursing staff REcommend GI consult if hg continues to downtrend CLARIFY HIS HOME MEDICATION HE WAS ON ASA, PLAVIX, PLETAL, ELIQUIS ALL AT ONCE ! SKIN: Pressure ulcer prevention per facility protocol Specialty mattress ORTHO/REHAB: Continue PT/OT Prophylaxis: Continue GI and DVT prophylaxis WITH PROTONIX AND SCD RESPECTIVELY Code Status: Full Resuscitation Disposition: SNF FOR PT/OT ATTESTATION BY PHYSICIAN The above note was scribed by Korey Olea BSc and I attest to the accuracy of the clinical documentation Janis George MD I personally scribed for JANIS GEORGE MD ([email or web address]) on 04/09/24 at 21:04. Electronically submitted by Korey Olea ([email or web address]). JANIS GEORGE MD Apr 09, 2024 21:04
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
[2024-04-10] VITALS (11 sets, daily range): BP systolic 140–161; BP diastolic 58–73; PULSE 91–102; RESP 18–22; TEMP 98.1–98.4; O2SAT 92–96
[2024-04-10] MEDS ORDERED: LACTULOSE 20 GM/30 ML UDCUP PO PRN (05:00)
--- NOTE | 2024-04-10 17:26 | PN ---
[facility] PROGRESS NOTE Date Patient Seen: Apr 10, 2024 Time of Visit: 17:26 Supervising Physician: [Dr. Stone] Primary Care Physician: Outpatient Specialists: [ ] Inpatient Consults: UROLOGY - ASASE , PROBLEM LIST: Sepsis , POA Community-acquired pneumonia, with Right Sided small Pleural Effusion, POA Acute kidney injury, multifactorial , improved Obstructive Uropathy suspected secondary to BPH s/p Oconnor placement on 04/07/24 Acute Grade III Right Ankle Sprain , POA no evidence of fracture on x-ray Iron deficiency Anemia Hypertension, POA Hyperlipidemia, POA Hypothyroidism, POA DM type, with hyperglycemia, poorly controlled, A1c of 9.6% Current day smoker, smoked one pack per day PAD hx of balloon angioplasty Mild Aortic Stenosis , EF of 60% INTERVAL HISTORY: Patient is feeling improved, continues with intermittent nasal cannula. Laboratory results reviewed. Is tolerating diet without nausea or vomiting. No current distress. Continues with weakness, dyspnea on exertion. Has a dry cough which is improving. His blood sugar readings have been elevated in 200- 300 range. Will adjust insulin. Patient was evaluated by orthopedic surgery and is recommending treatment for cellulitis. No plans for surgical intervention but if patient does not improve, ortho may consider biopsy vs aspiration of bone cyst. He continues on antibiotics pending SNF. REVIEW OF SYSTEMS: 12 point ROS reviewed with patient. Pertinent positives mentioned above. Otherwise negative. PHYSICAL EXAM: GENERAL: alert, weak, awake oriented x 3 HEENT: EOMI, Sclera non icteric, moist mucosa NECK: Supple, no JVD, trachea midline LUNGS: Clear breath sounds bilaterally. No wheezes HEART: Regular rate and rhythm. Normal S1 and S2, without murmurs ABD: Abdomen soft, nontender. Bowel sounds present EXT: Right ankle pain with swelling NEURO: Alert and oriented to person, follows commands Vital Signs (last 8hr) Date Time Temp Pulse Resp B/P (MAP) Pulse Ox O2 Delivery O2 Flow Rate FiO2 04/10/24 16:00 98.4 102 19 140/65 95 Room Air 21 04/10/24 12:00 98.2 98 20 161/58 95 Room Air 21 04/10/24 11:26 95 18 04/10/24 11:25 95 20 N/A Room Air 0.0 21 04/10/24 09:30 96 Room Air* 0 21 LABS: Hematology Labs: Test 04/09/24 04:42 Range/Units White Blood Count 13.8 #H 4.8-10.8 K/uL Red Blood Count 2.38 L 4.50-6.20 MIL/uL Hemoglobin 7.2 L 14.0-18.0 g/dL Hematocrit 22.4 L 42-54 % Mean Corpuscular Volume 94.1 79-99 fL Mean Corpuscular Hemoglobin 30.3 27.0-33.0 pg Mean Corpuscular Hemoglobin Concent 32.1 32.0-36.0 g/dL Red Cell Distribution Width 13.4 11.0-15.5 % Platelet Count 456 H 130-400 K/uL Mean Platelet Volume 9.9 7.5-10.5 fL Immature Granulocyte % (Auto) 0.7 0-1 % Neutrophils (%) (Auto) 79.8 H 40.0-77.0 % Lymphocytes (%) (Auto) 11.4 L 21.0-51.0 % Monocytes (%) (Auto) 5.1 3.0-13.0 % Eosinophils (%) (Auto) 2.7 0.0-8.0 % Basophils (%) (Auto) 0.3 0.0-5.0 % Neutrophils # (Auto) 11.0 H 1.8-7.7 K/uL Lymphocytes # (Auto) 1.6 1.0-4.8 K/uL Monocytes # (Auto) 0.7 0.1-1.0 K/uL Eosinophils # (Auto) 0.37 0.00-0.70 K/uL Basophils # (Auto) 0.04 0.00-0.20 K/uL Absolute Immature Granulocyte (auto 0.09 0-1 K/uL Nucleated Red Blood Cells 0.4 H 0.0-0.19 % Chemistry Labs: Test 04/10/24 15:01 04/10/24 11:46 04/09/24 04:42 Range/Units Whole Blood Glucose 330 H 70-110 MG/DL Bedside Glucose Comment Notified Nurse Sodium Level 134 L 136-145 mmol/L Potassium Level 4.2 3.5-5.1 mmol/L Chloride Level 101 101-111 mmol/L Carbon Dioxide Level 22 21-32 mmol/L Blood Urea Nitrogen 19 H 7-18 mg/dL Creatinine 1.2 0.5-1.3 mg/dL Glomerular Filtration Rate Calc 64 >90 mL/min Random Glucose 234 #H 70-105 mg/dL Total Calcium 8.2 L 8.5-10.1 mg/dL Magnesium Level 1.90 1.6-2.6 mg/dL Total Bilirubin 0.2 0.2-1.0 mg/dL Aspartate Amino Transf (AST/SGOT) 16 10-37 U/L Alanine Aminotransferase (ALT/SGPT) 26 # 12-78 U/L Alkaline Phosphatase 167 H 50-136 U/L B-Type Natriuretic Peptide 258 H 0-100 pg/mL Total Protein 5.9 L 6.0-8.3 g/dL Albumin 1.7 L 3.5-5.0 g/dL DIAGNOSTICS / RADIOLOGY RESULTS: CT ABDOMEN/PELVIS W/O CONTRAST HISTORY: Urinary retention COMPARISON: 08/20/2023 TECHNIQUE: Multiple sequential axial images of the abdomen and pelvis were obtained from the dome of the diaphragm through symphysis pubis. Patient was not given contrast through intravenous route. Oral contrast was not given. FINDINGS: There is moderate size right pleural effusion with compressive atelectasis. Tiny left pleural effusion is seen. There is no evidence of parenchymal disease or pulmonary nodule of the visualized lower lungs. Degenerative changes of the thoracolumbar spine are present. The heart is not enlarged. Liver is enlarged measuring 18 cm. Gallbladder is distended. The liver, spleen, adrenal glands and pancreas are unremarkable. There is no evidence of hydronephrosis bilaterally. No evidence of renal stone is seen. Fecal material is seen in the colon. There are normal size retroperitoneal and mesenteric lymph nodes. No ascites is seen. Atherosclerotic changes are present. Appendix is not well seen limiting evaluation. There is diverticulosis. Pelvic sidewalls are symmetric bilaterally. Bladder is poorly distended with bladder wall thickening measuring 11 mm in thickness. Oconnor catheter is seen with distal tip in the bladder. If there is clinical suspicion for cystitis, urinalysis correlation may be helpful. IMPRESSION: 1. Bladder is poorly distended with bladder wall thickening measuring 11 mm in thickness. Oconnor catheter is seen with distal tip in the bladder. If there is clinical suspicion for cystitis, urinalysis correlation may be helpful. 2. Large amount of fecal material is seen in the colon. There is diverticulosis. PLAN Continue antibiotics Appreciate ortho recommendation Continue PT/OT Pending SNF NEURO: Minimize central acting medications as possible. Maintain fall precautions, adequate lighting during the day PULMONARY: Supplemental 02 as needed. Maintain aspiration precautions at all times Atrovent, Pulmicort, and CPT. sputum culture Head of Bed Elevated at all times CXR in AM CARDIOVASCULAR: Follow hemodynamics. Vital signs per facility protocol Echo Patient was on multiple antiplatelet and anticoagulant medications. Prior records revealed that he should have only been on aspirin and Plavix for six months as a result we will discontinue Plavix at this time. He was also supposed to discontinue Pletal during his time with aspirin and Plavix at this time we will hold it and allow Cardiology to resume it at their discretion. There was also Eliquis which we are uncertain as to why he was taken this. Patient was not a very good historian. Given his anemia we will continue aspirin at this time while we await further clarification on his anticoagulant. There is no history of atrial fibrillation, or DVTs that are present at the moment GI & NTRITION: Continue with nutritional support. Continue stool softeners and laxatives as needed. KIDNEYS & ELECTROLYTES: Strict monitoring of intake, output and overall fluid balance. Avoid nephrotoxic medications to the extent possible. Medications to be dosed according to renal function. Monitor electrolytes and replace as needed PSA levels , start flomax , Oconnor in place and consult urology ENDOCRINE: Maintain blood glucose between 100-180 at all times. Hypoglycemia protocol in place INFECTIOUS DISEASE: Trend temperature, WBC and procalcitonin level Follow cultures, deescalate antibiotics as soon as possible. Panculture if new onset fever ONCOLOGY/HEMATOLOGY/COAGULATION: Monitor for s/s of bleeding Monitor hemoglobin, coagulation studies as needed + Iron sudies , starrt venofer x 1 today No melena reported per nursing staff REcommend GI consult if hg continues to downtrend CLARIFY HIS HOME MEDICATION HE WAS ON ASA, PLAVIX, PLETAL, ELIQUIS ALL AT ONCE ! SKIN: Pressure ulcer prevention per facility protocol Specialty mattress ORTHO/REHAB: Continue PT/OT Prophylaxis: Continue GI and DVT prophylaxis WITH PROTONIX AND SCD RESPECTIVELY Code Status: Full Resuscitation Disposition: SNF FOR PT/OT ATTESTATION BY PHYSICIAN The above note was scribed by Korey Olea BSc and I attest to the accuracy of the clinical documentation Hermilo George MD, MARCUS A PA Apr 10, 2024 17:26
[2024-04-10] MEDS: INSULIN GLARgine 100 UNITS/ML 10 ML VIAL SQ SCH (21:09)
[2024-04-11] VITALS (11 sets, daily range): BP systolic 132–175; BP diastolic 60–78; PULSE 78–101; RESP 16–21; TEMP 97.7–98.4; O2SAT 93–100
[2024-04-11 05:00] LABS: BASOPHILS # (AUTO) 0.06 K/uL (0.00-0.20); BASOPHILS % (AUTO) 0.3 % (0.0-5.0); EOSINOPHILS # (AUTO) 0.49 K/uL (0.00-0.70); EOSINOPHILS % (AUTO) 2.7 % (0.0-8.0); HEMATOCRIT 23.6 % (42-54); LYMPHOCYTES # (AUTO) 1.6 K/uL (1.0-4.8); LYMPHOCYTES % (AUTO) 8.7 % (21.0-51.0); MEAN CORPUSCULAR HEMOGLOBIN 30.8 pg (27.0-33.0); MEAN CORPUSCULAR HGB CONC 32.2 g/dL (32.0-36.0); MEAN CORPUSCULAR VOLUME 95.5 fL (79-99); MONOCYTES # (AUTO) 1.3 K/uL (0.1-1.0); MONOCYTES % (AUTO) 7.1 % (3.0-13.0); NEUTROPHILS # (AUTO) 14.3 K/uL (1.8-7.7); NEUTROPHILS % (AUTO) 80.1 % (40.0-77.0); NUCLEATED RED BLOOD CELLS 0.2 % (0.0-0.19); PLATELET COUNT (AUTO) 532 K/uL (130-400); RED BLOOD CELL COUNT(AUTO) 2.47 MIL/uL (4.50-6.20); RED CELL DISTRIBUTION WIDTH 13.6 % (11.0-15.5); WHITE BLOOD COUNT (AUTO) 17.9 K/uL (4.8-10.8)
[2024-04-11 05:15] LABS: ALBUMIN 1.6 g/dL (3.5-5.0); BILIRUBIN,TOTAL 0.2 mg/dL (0.2-1.0); CREATININE 1.2 mg/dL (0.5-1.3); POTASSIUM 4.1 mmol/L (3.5-5.1); TOTAL PROTEIN, SERUM 6.1 g/dL (6.0-8.3)
[2024-04-11] MEDS: INSULIN GLARgine 100 UNITS/ML 10 ML VIAL SQ SCH ×2 (07:49→21:10)
--- NOTE | 2024-04-11 12:04 | PN ---
[facility] PROGRESS NOTE Date Patient Seen: Apr 11, 2024 Time of Visit: 12:02 Supervising Physician: [Dr. Stone] Primary Care Physician: Outpatient Specialists: [ ] Inpatient Consults: UROLOGY - ASASE , PROBLEM LIST: Sepsis , POA Community-acquired pneumonia, with Right Sided small Pleural Effusion, POA Acute kidney injury, multifactorial , improved Obstructive Uropathy suspected secondary to BPH s/p Oconnor placement on 04/07/24 Acute Grade III Right Ankle Sprain , POA no evidence of fracture on x-ray Iron deficiency Anemia Hypertension, POA Hyperlipidemia, POA Hypothyroidism, POA DM type, with hyperglycemia, poorly controlled, A1c of 9.6% Current day smoker, smoked one pack per day PAD hx of balloon angioplasty Mild Aortic Stenosis , EF of 60% INTERVAL HISTORY: Patient is feeling improved, continues with intermittent nasal cannula. Laboratory results reviewed. Is tolerating diet without nausea or vomiting. No current distress. Continues with weakness, dyspnea on exertion. Has a dry cough which is improving. His blood sugar readings have been elevated in 200- 300 range. Will adjust insulin. Patient was evaluated by orthopedic surgery and is recommending treatment for cellulitis. No plans for surgical intervention but if patient does not improve, ortho may consider biopsy vs aspiration of bone cyst. He continues on antibiotics pending SNF. 04/11 REVIEW OF SYSTEMS: 12 point ROS reviewed with patient. Pertinent positives mentioned above. Otherwise negative. PHYSICAL EXAM: GENERAL: alert, weak, awake oriented x 3 HEENT: EOMI, Sclera non icteric, moist mucosa NECK: Supple, no JVD, trachea midline LUNGS: Clear breath sounds bilaterally. No wheezes HEART: Regular rate and rhythm. Normal S1 and S2, without murmurs ABD: Abdomen soft, nontender. Bowel sounds present EXT: Right ankle pain with swelling NEURO: Alert and oriented to person, follows commands Vital Signs (last 8hr) Date Time Temp Pulse Resp B/P (MAP) Pulse Ox O2 Delivery O2 Flow Rate FiO2 04/11/24 11:50 98.2 97 17 163/70 98 Room Air 04/11/24 11:02 78 18 04/11/24 08:16 97.9 94 20 133/60 100 Room Air 04/11/24 08:00 100 Room Air* 0 21 04/11/24 06:35 101 20 N/A Room Air 21 04/11/24 06:35 101 18 LABS: Hematology Labs: Test 04/11/24 04:45 Range/Units White Blood Count 17.9 H 4.8-10.8 K/uL Red Blood Count 2.47 L 4.50-6.20 MIL/uL Hemoglobin 7.6 L 14.0-18.0 g/dL Hematocrit 23.6 L 42-54 % Mean Corpuscular Volume 95.5 79-99 fL Mean Corpuscular Hemoglobin 30.8 27.0-33.0 pg Mean Corpuscular Hemoglobin Concent 32.2 32.0-36.0 g/dL Red Cell Distribution Width 13.6 11.0-15.5 % Platelet Count 532 H 130-400 K/uL Mean Platelet Volume 9.6 7.5-10.5 fL Immature Granulocyte % (Auto) 1.1 H 0-1 % Neutrophils (%) (Auto) 80.1 H 40.0-77.0 % Lymphocytes (%) (Auto) 8.7 L 21.0-51.0 % Monocytes (%) (Auto) 7.1 3.0-13.0 % Eosinophils (%) (Auto) 2.7 0.0-8.0 % Basophils (%) (Auto) 0.3 0.0-5.0 % Neutrophils # (Auto) 14.3 H 1.8-7.7 K/uL Lymphocytes # (Auto) 1.6 1.0-4.8 K/uL Monocytes # (Auto) 1.3 H 0.1-1.0 K/uL Eosinophils # (Auto) 0.49 0.00-0.70 K/uL Basophils # (Auto) 0.06 0.00-0.20 K/uL Absolute Immature Granulocyte (auto 0.20 0-1 K/uL Nucleated Red Blood Cells 0.2 H 0.0-0.19 % Chemistry Labs: Test 04/11/24 10:32 04/11/24 04:45 04/10/24 17:42 Range/Units Whole Blood Glucose 332 H 70-110 MG/DL Bedside Glucose Comment Notified Nurse Sodium Level 133 L 136-145 mmol/L Potassium Level 4.1 3.5-5.1 mmol/L Chloride Level 101 101-111 mmol/L Carbon Dioxide Level 22 21-32 mmol/L Blood Urea Nitrogen 19 H 7-18 mg/dL Creatinine 1.2 0.5-1.3 mg/dL Glomerular Filtration Rate Calc 64 >90 mL/min Random Glucose 239 H 70-105 mg/dL Total Calcium 8.3 L 8.5-10.1 mg/dL Total Bilirubin 0.2 0.2-1.0 mg/dL Aspartate Amino Transf (AST/SGOT) 12 10-37 U/L Alanine Aminotransferase (ALT/SGPT) 20 12-78 U/L Alkaline Phosphatase 182 H 50-136 U/L Total Protein 6.1 6.0-8.3 g/dL Albumin 1.6 L 3.5-5.0 g/dL Total Creatine Kinase 35 # 21-232 U/L DIAGNOSTICS / RADIOLOGY RESULTS: [ ] PLAN Continue antibiotics Appreciate ortho recommendation Continue PT/OT Pending SNF NEURO: Minimize central acting medications as possible. Maintain fall precautions, adequate lighting during the day PULMONARY: Supplemental 02 as needed. Maintain aspiration precautions at all times Atrovent, Pulmicort, and CPT. sputum culture Head of Bed Elevated at all times CXR in AM CARDIOVASCULAR: Follow hemodynamics. Vital signs per facility protocol Echo Patient was on multiple antiplatelet and anticoagulant medications. Prior records revealed that he should have only been on aspirin and Plavix for six months as a result we will discontinue Plavix at this time. He was also supposed to discontinue Pletal during his time with aspirin and Plavix at this time we will hold it and allow Cardiology to resume it at their discretion. There was also Eliquis which we are uncertain as to why he was taken this. Patient was not a very good historian. Given his anemia we will continue aspirin at this time while we await further clarification on his anticoagulant. There is no history of atrial fibrillation, or DVTs that are present at the moment GI & NTRITION: Continue with nutritional support. Continue stool softeners and laxatives as needed. KIDNEYS & ELECTROLYTES: Strict monitoring of intake, output and overall fluid balance. Avoid nephrotoxic medications to the extent possible. Medications to be dosed according to renal function. Monitor electrolytes and replace as needed PSA levels , start flomax , Oconnor in place and consult urology ENDOCRINE: Maintain blood glucose between 100-180 at all times. Hypoglycemia protocol in place INFECTIOUS DISEASE: Trend temperature, WBC and procalcitonin level Follow cultures, deescalate antibiotics as soon as possible. Panculture if new onset fever ONCOLOGY/HEMATOLOGY/COAGULATION: Monitor for s/s of bleeding Monitor hemoglobin, coagulation studies as needed + Iron sudies , starrt venofer x 1 today No melena reported per nursing staff REcommend GI consult if hg continues to downtrend CLARIFY HIS HOME MEDICATION HE WAS ON ASA, PLAVIX, PLETAL, ELIQUIS ALL AT ONCE ! SKIN: Pressure ulcer prevention per facility protocol Specialty mattress ORTHO/REHAB: Continue PT/OT Prophylaxis: Continue GI and DVT prophylaxis WITH PROTONIX AND SCD RESPECTIVELY Code Status: Full Resuscitation Disposition: SNF FOR PT/OT ATTESTATION BY PHYSICIAN The above note was scribed by Korey Olea BSc and I attest to the accuracy of the clinical documentation Hermilo George MD, MARCUS A PA Apr 11, 2024 12:04
--- NOTE | 2024-04-11 12:09 | PN ---
[facility] PROGRESS NOTE Date Patient Seen: Apr 11, 2024 Time of Visit: 12:07 Supervising Physician: [Dr. Stone] Primary Care Physician: Outpatient Specialists: [ ] Inpatient Consults: UROLOGY - ASASE , PROBLEM LIST: Sepsis , POA Community-acquired pneumonia, with Right Sided small Pleural Effusion, POA Acute kidney injury, multifactorial , improved Obstructive Uropathy suspected secondary to BPH s/p Oconnor placement on 04/07/24 Acute Grade III Right Ankle Sprain , POA no evidence of fracture on x-ray Iron deficiency Anemia Hypertension, POA Hyperlipidemia, POA Hypothyroidism, POA DM type, with hyperglycemia, poorly controlled, A1c of 9.6% Current day smoker, smoked one pack per day PAD hx of balloon angioplasty Mild Aortic Stenosis , EF of 60% INTERVAL HISTORY: Patient is feeling improved, continues with intermittent nasal cannula. Laboratory results reviewed. Is tolerating diet without nausea or vomiting. No current distress. Continues with weakness, dyspnea on exertion. Has a dry cough which is improving. His blood sugar readings have been elevated in 200- 300 range. Will adjust insulin. Patient was evaluated by orthopedic surgery and is recommending treatment for cellulitis. No plans for surgical intervention but if patient does not improve, ortho may consider biopsy vs aspiration of bone cyst. He continues on antibiotics pending SNF. 04/11 patient is evaluated at bedside. Blood pressure is 133/60 with a heart rate of 94, afebrile on room air. Patient has been diuresing well with about 2800 mL of urine output overnight. His WBC increased from 13-17 overnight, his hemoglobin is 7.6 and platelets are 532. No fever overnight. His CMP shows elevated alkaline phosphatase and mild hypo natremia at 133 as well as low albumin. CK is normal at 35. No other electrolyte derangement. His creatinine has remained stable at 1.2. His blood and respiratory cultures are negative. Patient continues on antibiotics. His blood sugar has been inadequately controlled despite insulin adjustment yesterday. REVIEW OF SYSTEMS: 12 point ROS reviewed with patient. Pertinent positives mentioned above. Otherwise negative. PHYSICAL EXAM: GENERAL: alert, weak, awake oriented x 3 HEENT: EOMI, Sclera non icteric, moist mucosa NECK: Supple, no JVD, trachea midline LUNGS: Clear breath sounds bilaterally. No wheezes HEART: Regular rate and rhythm. Normal S1 and S2, without murmurs ABD: Abdomen soft, nontender. Bowel sounds present EXT: Right ankle pain with swelling NEURO: Alert and oriented to person, follows commands Vital Signs (last 8hr) Date Time Temp Pulse Resp B/P (MAP) Pulse Ox O2 Delivery O2 Flow Rate FiO2 04/11/24 11:50 98.2 97 17 163/70 98 Room Air 04/11/24 11:02 78 18 04/11/24 08:16 97.9 94 20 133/60 100 Room Air 04/11/24 08:00 100 Room Air* 0 21 04/11/24 06:35 101 20 N/A Room Air 21 04/11/24 06:35 101 18 LABS: Hematology Labs: Test 04/11/24 04:45 Range/Units White Blood Count 17.9 H 4.8-10.8 K/uL Red Blood Count 2.47 L 4.50-6.20 MIL/uL Hemoglobin 7.6 L 14.0-18.0 g/dL Hematocrit 23.6 L 42-54 % Mean Corpuscular Volume 95.5 79-99 fL Mean Corpuscular Hemoglobin 30.8 27.0-33.0 pg Mean Corpuscular Hemoglobin Concent 32.2 32.0-36.0 g/dL Red Cell Distribution Width 13.6 11.0-15.5 % Platelet Count 532 H 130-400 K/uL Mean Platelet Volume 9.6 7.5-10.5 fL Immature Granulocyte % (Auto) 1.1 H 0-1 % Neutrophils (%) (Auto) 80.1 H 40.0-77.0 % Lymphocytes (%) (Auto) 8.7 L 21.0-51.0 % Monocytes (%) (Auto) 7.1 3.0-13.0 % Eosinophils (%) (Auto) 2.7 0.0-8.0 % Basophils (%) (Auto) 0.3 0.0-5.0 % Neutrophils # (Auto) 14.3 H 1.8-7.7 K/uL Lymphocytes # (Auto) 1.6 1.0-4.8 K/uL Monocytes # (Auto) 1.3 H 0.1-1.0 K/uL Eosinophils # (Auto) 0.49 0.00-0.70 K/uL Basophils # (Auto) 0.06 0.00-0.20 K/uL Absolute Immature Granulocyte (auto 0.20 0-1 K/uL Nucleated Red Blood Cells 0.2 H 0.0-0.19 % Chemistry Labs: Test 04/11/24 10:32 04/11/24 04:45 04/10/24 17:42 Range/Units Whole Blood Glucose 332 H 70-110 MG/DL Bedside Glucose Comment Notified Nurse Sodium Level 133 L 136-145 mmol/L Potassium Level 4.1 3.5-5.1 mmol/L Chloride Level 101 101-111 mmol/L Carbon Dioxide Level 22 21-32 mmol/L Blood Urea Nitrogen 19 H 7-18 mg/dL Creatinine 1.2 0.5-1.3 mg/dL Glomerular Filtration Rate Calc 64 >90 mL/min Random Glucose 239 H 70-105 mg/dL Total Calcium 8.3 L 8.5-10.1 mg/dL Total Bilirubin 0.2 0.2-1.0 mg/dL Aspartate Amino Transf (AST/SGOT) 12 10-37 U/L Alanine Aminotransferase (ALT/SGPT) 20 12-78 U/L Alkaline Phosphatase 182 H 50-136 U/L Total Protein 6.1 6.0-8.3 g/dL Albumin 1.6 L 3.5-5.0 g/dL Total Creatine Kinase 35 # 21-232 U/L DIAGNOSTICS / RADIOLOGY RESULTS: Reviewed. PLAN Stop azithromycin, start doxycycline Continue rocephin Increase glargine to 20 units daily and 10 units at overnight babysitter WBC in AM, monitor s/s of infection Appreciate ortho recommendation Continue PT/OT Pending SNF NEURO: Minimize central acting medications as possible. Maintain fall precautions, adequate lighting during the day PULMONARY: Supplemental 02 as needed. Maintain aspiration precautions at all times Atrovent, Pulmicort, and CPT. sputum culture Head of Bed Elevated at all times CXR in AM CARDIOVASCULAR: Follow hemodynamics. Vital signs per facility protocol Echo Patient was on multiple antiplatelet and anticoagulant medications. Prior records revealed that he should have only been on aspirin and Plavix for six months as a result we will discontinue Plavix at this time. He was also supposed to discontinue Pletal during his time with aspirin and Plavix at this time we will hold it and allow Cardiology to resume it at their discretion. There was also Eliquis which we are uncertain as to why he was taken this. Patient was not a very good historian. Given his anemia we will continue aspirin at this time while we await further clarification on his anticoagulant. There is no history of atrial fibrillation, or DVTs that are present at the moment GI & NTRITION: Continue with nutritional support. Continue stool softeners and laxatives as needed. KIDNEYS & ELECTROLYTES: Strict monitoring of intake, output and overall fluid balance. Avoid nephrotoxic medications to the extent possible. Medications to be dosed according to renal function. Monitor electrolytes and replace as needed PSA levels , start flomax , Oconnor in place and consult urology ENDOCRINE: Maintain blood glucose between 100-180 at all times. Hypoglycemia protocol in place INFECTIOUS DISEASE: Trend temperature, WBC and procalcitonin level Follow cultures, deescalate antibiotics as soon as possible. Panculture if new onset fever ONCOLOGY/HEMATOLOGY/COAGULATION: Monitor for s/s of bleeding Monitor hemoglobin, coagulation studies as needed + Iron sudies , starrt venofer x 1 today No melena reported per nursing staff REcommend GI consult if hg continues to downtrend CLARIFY HIS HOME MEDICATION HE WAS ON ASA, PLAVIX, PLETAL, ELIQUIS ALL AT ONCE ! SKIN: Pressure ulcer prevention per facility protocol Specialty mattress ORTHO/REHAB: Continue PT/OT Prophylaxis: Continue GI and DVT prophylaxis WITH PROTONIX AND SCD RESPECTIVELY Code Status: Full Resuscitation Disposition: SNF FOR PT/OT ATTESTATION BY PHYSICIAN The above note was scribed by MONICA Lawlerc and I attest to the accuracy of the clinical documentation Hermilo George MD, MARCUS A PA Apr 11, 2024 12:09
--- NOTE | 2024-04-11 13:28 | PN ---
SUBJECTIVE: This is a 73-year-old male patient admitted with complaints of right leg pain, swelling. 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 PHYSICAL EXAMINATION: GENERAL: The patient is awake, alert, oriented x3. VITAL SIGNS: The latest vital signs are heart rate 84, respiratory rate is 16, blood pressure is 138/73. EXTREMITIES: Examination of right lower extremity, mild swelling present of the right ankle, erythema and cellulitis present posteromedial aspect, more over posterior to the medial malleolus. No bony tenderness around the medial malleolus. Toes are warm and pink. Good capillary refill is present. Motor, sensory is grossly intact. ASSESSMENT AND PLAN: Continue IV antibiotics, limb elevation. Patient possibly might need incision and drainage down the road if the infection forms an abscess, but as of now, he is not having any abscess. The patient also will need possibly serial followups for the right ankle bone cyst. Ortho will continue to follow the patient. TID: [id number] RECEIPT: [id number]
--- NOTE | 2024-04-11 14:17 | PN ---
SUBJECTIVE: This is a 73-year-old male patient diagnosed with a right leg cellulitis, right ankle cellulitis. 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 No acute events overnight. Pain well controlled. PHYSICAL EXAMINATION: GENERAL: The patient is awake, alert, oriented x 3. VITAL SIGNS: Temperature is afebrile, heart rate 85, blood pressure 148/73, oxygen saturation 98% on room air. EXTREMITIES: Examination of right ankle, right lower extremity, the erythema is predominantly present on the posteromedial aspect of the right ankle. It appears a bit more erythematous today. No tenderness along the medial malleolus. Ankle range of motion is slightly limited. Mild warmth present. Toes are warm and pink. Good capillary refill is present. ASSESSMENT AND PLAN: Again, discussed with the patient regarding his condition. We will continue IV antibiotics. Continue limb elevation. Continue adequate pain control. If the patient eventually forms an abscess, he may need an I and D. Otherwise, conservative management for now. The patient agrees with the above plan. TID: [id number] RECEIPT: [id number]
[2024-04-11] MEDS: DOXYCYCLINE HYCLATE 100 MG TABLET PO SCH (21:09)
[2024-04-11] MEDS: HYDROcodone/APAP 5/325 1 TAB TABLET PO PRN (21:10)
[2024-04-12] VITALS (12 sets, daily range): BP systolic 138–165; BP diastolic 58–81; PULSE 78–97; RESP 18–20; TEMP 98.1–98.6; O2SAT 94–97
[2024-04-12 04:33] LABS: CREATININE 1.2 mg/dL (0.5-1.3); MAGNESIUM 2.1 mg/dL (1.80-2.40); POTASSIUM 4.3 mmol/L (3.5-5.1)
[2024-04-12] MEDS: morPHINE 2 MG SYG IVP PRN (05:01)
[2024-04-12] MEDS: INSULIN GLARgine 100 UNITS/ML 10 ML VIAL SQ SCH (08:22)
[2024-04-12 13:57] LABS: BASOPHILS # (AUTO) 0.07 K/uL (0.00-0.20); BASOPHILS % (AUTO) 0.5 % (0.0-5.0); EOSINOPHILS # (AUTO) 0.64 K/uL (0.00-0.70); EOSINOPHILS % (AUTO) 4.2 % (0.0-8.0); HEMATOCRIT 25.4 % (42-54); IMMATURE GRANULOCYTE ABSOLUTE 0.17 K/uL (0-1); LYMPHOCYTES # (AUTO) 1.8 K/uL (1.0-4.8); MEAN CORPUSCULAR HGB CONC 32.3 g/dL (32.0-36.0); MONOCYTES # (AUTO) 0.7 K/uL (0.1-1.0); MONOCYTES % (AUTO) 4.6 % (3.0-13.0); NEUTROPHILS # (AUTO) 11.9 K/uL (1.8-7.7); NEUTROPHILS % (AUTO) 77.6 % (40.0-77.0); NUCLEATED RED BLOOD CELLS 0.1 % (0.0-0.19); PLATELET COUNT (AUTO) 606 K/uL (130-400); RED BLOOD CELL COUNT(AUTO) 2.73 MIL/uL (4.50-6.20); RED CELL DISTRIBUTION WIDTH 13.8 % (11.0-15.5); WHITE BLOOD COUNT (AUTO) 15.3 K/uL (4.8-10.8)
--- NOTE | 2024-04-12 14:11 | PN ---
[facility] PROGRESS NOTE Date Patient Seen: Apr 12, 2024 Time of Visit: 14:10 Supervising Physician: [Dr. Howard] Primary Care Physician: Outpatient Specialists: [ ] Inpatient Consults: UROLOGY - ASASE , PROBLEM LIST: Sepsis , POA Community-acquired pneumonia, with Right Sided small Pleural Effusion, POA Acute kidney injury, multifactorial , improved Obstructive Uropathy suspected secondary to BPH s/p Oconnor placement on 04/07/24 Acute Grade III Right Ankle Sprain , POA no evidence of fracture on x-ray Iron deficiency Anemia Hypertension, POA Hyperlipidemia, POA Hypothyroidism, POA DM type, with hyperglycemia, poorly controlled, A1c of 9.6% Current day smoker, smoked one pack per day PAD hx of balloon angioplasty Mild Aortic Stenosis , EF of 60% INTERVAL HISTORY: Patient is feeling improved, continues with intermittent nasal cannula. Laboratory results reviewed. Is tolerating diet without nausea or vomiting. No current distress. Continues with weakness, dyspnea on exertion. Has a dry cough which is improving. His blood sugar readings have been elevated in 200- 300 range. Will adjust insulin. Patient was evaluated by orthopedic surgery and is recommending treatment for cellulitis. No plans for surgical intervention but if patient does not improve, ortho may consider biopsy vs aspir ation of bone cyst. He continues on antibiotics pending SNF. 04/11 patient is evaluated at bedside. Blood pressure is 133/60 with a heart rate of 94, afebrile on room air. Patient has been diuresing well with about 2800 mL of urine output overnight. His WBC increased from 13-17 overnight, his hemoglobin is 7.6 and platelets are 532. No fever overnight. His CMP shows elevated alkaline phosphatase and mild hypo natremia at 133 as well as low albumin. CK is normal at 35. No other electrolyte derangement. His creatinine has remained stable at 1.2. His blood and respiratory cultures are negative. Patient continues on antibiotics. His blood sugar has been inadequately controlled despite insulin adjustment yesterday. 04/12 Blood pressure is 161/77 with a heart rate of 86, afebrile on room air. Patient has diuresed significantly with the about 2400 mL of urine output overnight. Has decreased swelling to right lower extremity, redness is also decreased. His white blood count did transiently increase to 17, repeat is improved to 15. He was initiated on doxycycline yesterday. BNP is within normal limits, with a creatinine 1.2. Blood sugar remains uncontrolled in the 300s. The patient's PCP contacted me regarding abnormal patient's studies. Patient had an arterial duplex performed 01/13/2024 that revealed severe arterial inflow occlusion of the R-popliteal and anterior tibial artery with pedal arteries appearing occluded. His CT angio abd aorta with bilateral runoff was grossly unremarkable in 07/2023. Pts PCP is requesting cardio eval while admitted. Given his RLE cellulitis with delayed healing, will consult cardiology for eval and potential intervention to help improve wound healing. I have marked the area of erythema for monitoring. REVIEW OF SYSTEMS: 12 point ROS reviewed with patient. Pertinent positives mentioned above. Otherwise negative. PHYSICAL EXAM: GENERAL: alert, weak, awake oriented x 3 HEENT: EOMI, Sclera non icteric, moist mucosa NECK: Supple, no JVD, trachea midline LUNGS: Clear breath sounds bilaterally. No wheezes HEART: Regular rate and rhythm. Normal S1 and S2, without murmurs ABD: Abdomen soft, nontender. Bowel sounds present EXT: Right ankle pain with swelling NEURO: Alert and oriented to person, follows commands Vital Signs (last 8hr) Date Time Temp Pulse Resp B/P (MAP) Pulse Ox O2 Delivery O2 Flow Rate FiO2 04/12/24 11:39 98.2 97 18 165/81 98 Room Air 04/12/24 11:09 78 18 04/12/24 08:00 98.6 95 20 159/62 97 Room Air 04/12/24 08:00 97 Room Air* 0 21 04/12/24 06:20 85 18 04/12/24 06:20 85 20 N/A Room Air 21 LABS: Hematology Labs: Test 04/12/24 13:50 Range/Units White Blood Count 15.3 H 4.8-10.8 K/uL Red Blood Count 2.73 L 4.50-6.20 MIL/uL Hemoglobin 8.2 L 14.0-18.0 g/dL Hematocrit 25.4 L 42-54 % Mean Corpuscular Volume 93.0 79-99 fL Mean Corpuscular Hemoglobin 30.0 27.0-33.0 pg Mean Corpuscular Hemoglobin Concent 32.3 32.0-36.0 g/dL Red Cell Distribution Width 13.8 11.0-15.5 % Platelet Count 606 H 130-400 K/uL Mean Platelet Volume 9.5 7.5-10.5 fL Immature Granulocyte % (Auto) 1.1 H 0-1 % Neutrophils (%) (Auto) 77.6 H 40.0-77.0 % Lymphocytes (%) (Auto) 12.0 L 21.0-51.0 % Monocytes (%) (Auto) 4.6 3.0-13.0 % Eosinophils (%) (Auto) 4.2 0.0-8.0 % Basophils (%) (Auto) 0.5 0.0-5.0 % Neutrophils # (Auto) 11.9 H 1.8-7.7 K/uL Lymphocytes # (Auto) 1.8 1.0-4.8 K/uL Monocytes # (Auto) 0.7 0.1-1.0 K/uL Eosinophils # (Auto) 0.64 0.00-0.70 K/uL Basophils # (Auto) 0.07 0.00-0.20 K/uL Absolute Immature Granulocyte (auto 0.17 0-1 K/uL Nucleated Red Blood Cells 0.1 0.0-0.19 % Chemistry Labs: Test 04/12/24 13:50 04/12/24 11:32 04/12/24 03:47 04/11/24 04:45 Range/Units Lactic Acid Level 1.9 0.8-2.5 mmol/L Whole Blood Glucose 303 H 70-110 MG/DL Bedside Glucose Comment Notified Nurse Sodium Level 135 L 136-145 mmol/L Potassium Level 4.3 3.5-5.1 mmol/L Chloride Level 102 101-111 mmol/L Carbon Dioxide Level 23 21-32 mmol/L Blood Urea Nitrogen 21 H 7-18 mg/dL Creatinine 1.2 0.5-1.3 mg/dL Glomerular Filtration Rate Calc 64 >90 mL/min Random Glucose 161 H 70-105 mg/dL Total Calcium 8.4 L 8.5-10.1 mg/dL Magnesium Level 2.10 1.80-2.40 mg/dL Total Bilirubin 0.2 0.2-1.0 mg/dL Aspartate Amino Transf (AST/SGOT) 12 10-37 U/L Alanine Aminotransferase (ALT/SGPT) 20 12-78 U/L Alkaline Phosphatase 182 H 50-136 U/L Total Protein 6.1 6.0-8.3 g/dL Albumin 1.6 L 3.5-5.0 g/dL Test 04/10/24 17:42 Range/Units Total Creatine Kinase 35 # 21-232 U/L DIAGNOSTICS / RADIOLOGY RESULTS: SERVICE [id number] REASON: PVD ORDERING PHYSICIAN: TASHI MORALES DO PROCEDURE: CTA ABDAOR - CT ANGIO ABD AORTA W RUNOFF CT ANGIO ABD AORTA W RUNOFF HISTORY: Peripheral vascular disease COMPARISON: 06/28/2022 TECHNIQUE: CT angiography of the abdomen and pelvis was obtained using angiographic technique with maximum intensity projection reconstruction images. Patient was given 150 cc of Omnipaque through intravenous route. Oral contrast was not given. FINDINGS: The liver, spleen, adrenal glands and pancreas are unremarkable in the visualized portion. There is hypodense mass in the posterior aspect of the right kidney with fat content than the changes 3 cm. This was also seen on previous study. Subcentimeter hepatic cysts also seen. Minimal small bowel dilatation is seen without definite obstruction. There is no evidence of hydronephrosis bilaterally. No evidence of renal stone is seen. Fecal material is seen in the colon. There are normal size retroperitoneal and mesenteric lymph nodes. No ascites is seen. Minimal atherosclerotic changes are seen. Appendix is not well seen. There is small periumbilical hernia with fat content. Prostate gland is enlarged measuring 6.1 x 5 cm. Small bilateral perineural hernia is seen. There is bypass graft noted in the anterior pelvic wall. There is minimal atherosclerotic disease. No evidence of abdominal aortic aneurysm is seen. The celiac, superior mesenteric and bilateral renal arteries are grossly patent. The visualized portion of the iliac and femoral arterial systems are also grossly patent. The popliteal, anterior tibial, posterior tibial and peroneal arteries are grossly patent. Pelvic sidewalls are symmetric bilaterally. Bladder is well distended without wall thickening. IMPRESSION: 1. Minimal atherosclerotic disease. Grossly unremarkable CT angiogram study. PLAN Pending cardio consult for PAD Continue doxycycline Continue rocephin Increase glargine to 20 units daily and 10 units at night Add meal time insulin Monitor WBC in AM, monitor s/s of infection Appreciate ortho recommendation Continue PT/OT Pending SNF NEURO: Minimize central acting medications as possible. Maintain fall precautions, adequate lighting during the day PULMONARY: Supplemental 02 as needed. Maintain aspiration precautions at all times Atrovent, Pulmicort, and CPT. sputum culture Head of Bed Elevated at all times CARDIOVASCULAR: Follow hemodynamics. Vital signs per facility protocol Echo Patient was on multiple antiplatelet and anticoagulant medications. Hold plavix at this time we will hold it and allow Cardiology to resume it at their disc retion. There was also Eliquis which we are uncertain as to why he was taken this. Patient was not a very good historian. Given his anemia we will continue aspirin at this time while we await further clarification on his anticoagulant. There is no history of atrial fibrillation, or DVTs that are present at the moment GI & NTRITION: Continue with nutritional support. Continue stool softeners and laxatives as needed. KIDNEYS & ELECTROLYTES: Strict monitoring of intake, output and overall fluid balance. Avoid nephrotoxic medications to the extent possible. Medications to be dosed according to renal function. Monitor electrolytes and replace as needed PSA levels , start flomax , Oconnor in place and consult urology ENDOCRINE: Maintain blood glucose between 100-180 at all times. Hypoglycemia protocol in place INFECTIOUS DISEASE: Trend temperature, WBC and procalcitonin level Follow cultures, deescalate antibiotics as soon as possible. Panculture if new onset fever ONCOLOGY/HEMATOLOGY/COAGULATION: Monitor for s/s of bleeding Monitor hemoglobin, coagulation studies as needed + Iron sudies No melena reported per nursing staff Recommend GI consult if hg continues to downtrend SKIN: Pressure ulcer prevention per facility protocol Specialty mattress ORTHO/REHAB: Continue PT/OT Prophylaxis: Continue GI and DVT prophylaxis WITH PROTONIX AND SCD RESPECTIVELY Code Status: Full Resuscitation Disposition: SNF FOR PT/OT ATTESTATION BY PHYSICIAN The above note was scribed by Korey Olea BSc and I attest to the accuracy of the clinical documentation Hermilo George MD, MARCUS A PA Apr 12, 2024 14:10
--- NOTE | 2024-04-12 16:57 | HMCIMG ---
US ARTERIAL UNILA LOW EXT DUPL REASON: ARTERIAL OCCLUSION COMPARISON: None TECHNIQUE: Right lower extremity arterial Doppler evaluation was performed with spectral analysis and color flow imaging. FINDINGS: There are monophasic waveforms common femoral artery through the popliteal artery. There are monophasic waveforms in the posterior tibial, anterior tibial and dorsalis pedis arteries. Distal waveforms are flattened with decreased flow velocity consistent with severe arterial inflow occlusion. Flow velocities in the common femoral artery in the superficial femoral artery are better preserved. IMPRESSION: 1. Monophasic common femoral artery waveform suggesting a component of aortoiliac occlusive disease. 2. Markedly damped monophasic waveforms anterior tibial and dorsalis pedis artery, with decreased flow velocity, consistent with significant arterial inflow occlusion.
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
[2024-04-12] MEDS: atorVAStatin 40 MG TABLET PO SCH (19:54)
[2024-04-12] MEDS: cloPIDOgrel 75MG TAB PO ONE (19:55)
[2024-04-12] MEDS: ondanSETRON 4MG INJ IVP PRN (19:57)
[2024-04-13] VITALS (16 sets, daily range): BP systolic 69–164; BP diastolic 37–69; PULSE 67–93; RESP 16–18; TEMP 97.9–98.2; O2SAT 92–97
[2024-04-13] MEDS ORDERED: Solu-medROL 125MG VIAL IVP PRN (01:00)
[2024-04-13] MEDS ORDERED: DiphenhydrAMINE HCL 50 MG/ML VIAL IVP PRN (01:00)
[2024-04-13 06:04] LABS: ALBUMIN 1.4 g/dL (3.5-5.0); BILIRUBIN,TOTAL 0.2 mg/dL (0.2-1.0); CREATININE 1.3 mg/dL (0.5-1.3); POTASSIUM 4.1 mmol/L (3.5-5.1); TOTAL PROTEIN, SERUM 5.9 g/dL (6.0-8.3)
[2024-04-13] MEDS ORDERED: INSULIN humuLIN R 100 UNIT/ML 3ML SQ SCH (07:30)
[2024-04-13] MEDS: FERROUS SULFATE 325 MG TABLET.DR PO SCH (08:58)
[2024-04-13] MEDS: cloPIDOgrel 75MG TAB PO SCH (09:06)
[2024-04-13] MEDS ORDERED: IODIXANOL 320 MG/ML 100 ML VIAL ONE (10:08)
[2024-04-13] MEDS ORDERED: LIDOCAINE HCL 400MG/20ML VIAL ONE (10:08)
[2024-04-13] MEDS ORDERED: HEParin-NS 1,000 UNIT/500 ML 1,000 ML IV ONE (10:08)
[2024-04-13] MEDS ORDERED: NITROGLYCERIN 50MG VIAL ONE (10:09)
[2024-04-13] MEDS ORDERED: DiphenhydrAMINE HCL 50 MG/ML VIAL ONE ×2 (10:41→12:59)
[2024-04-13] MEDS ORDERED: Solu-medROL 125MG VIAL ONE (10:41)
[2024-04-13] MEDS ORDERED: niCARDIpine 25MG INJ IV ONE (10:49)
[2024-04-13] MEDS ORDERED: VERAPAMIL HCL 2.5 MG/ML VIAL ONE (10:49)
[2024-04-13] MEDS ORDERED: MIDAZOLAM HCL 1 MG/ML 2ML VIAL ONE ×2 (11:07→12:33)
[2024-04-13] MEDS ORDERED: FENTanyl CITRate PF 50 MCG/1 ML 2ML VIAL ONE ×2 (11:07→12:29)
[2024-04-13] MEDS ORDERED: HEParin 10,000 UNIT/10ML (1,000 UNIT/ML) VIAL ONE (11:49)
[2024-04-13] MEDS ORDERED: HEParin-NS 1,000 UNIT/500 ML 500 ML IV ONE (11:57)
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
[2024-04-13] MEDS ORDERED: 0.9%NACL 1000ML 1,000 ML IV SCH (13:30)
--- NOTE | 2024-04-13 13:30 | PRN ---
Cath Procedure Report CATH PROCEDURE REPORT PERPHERAL ANGIOGRAM REPORT Date of Service: Apr 13, 2024 PROCEDURE: Abdominal aortogram Peripheral angiography of the Right lower extremity Percutaneous transluminal angioplasty of the right superficial femoral artery ( Balloon angioplasty Evercross 4 x 40 mm, Shockwave lithotripsy M5+ 5.0 x 60 mm, Medtronic INPACT Admiral drug coated balloon angioplasty 4.0 x 250mm) DRYWALL CONTRACTOR: Tashi John DO INDICATION: Peripheral artery disease, lifestyle limiting claudication, right lower extremity cellulitis CONSCIOUS SEDATION: 4mg Versed, 200mcg Fentanyl, 125mg Solumedrol, 50mg Diphenhydramine DESCRIPTION OF PROCEDURE: Patient brought back to the agriculture laboratory technician suite and fasting state. Time-out was performed. Conscious sedation was administered by the independent qualify agriculture laboratory technician RN under my direct supervision and there were no complications secondary to anesthesia. Patient was premedicated with 125 mg of Solu-Medrol and 25 mg of diphenhydramine for iodine allergy. The left brachial artery was accessed with use of ultrasound guidance and placement of six [place] short sheath which was flushed with heparinized saline. Over an 035 J-wire, a six [place] straight pigtail was advanced in distal abdominal aorta for abdominal aortography. This was then exchanged for a six [place] angled Navicross catheter and 035 glidewire advantage wire which was used to traverse the right aortofemoral graft with placement in the right superficial femoral artery. 65 units per kg of heparin was given via peripheral IV, with additional heparin given as needed to achieve a therapeutic ACT of greater than 170 throughout the procedure. Initially a six [place] by 45 cm destination sheath was placed, however then exchanged over the wire for a six [place] by 90 cm destination sheath. Ice Platform Supervisor angiography was performed of the right lower extremities is sheath followed by intervention to the ostial, proximal and distal superficial femoral artery. First we utilized an ever cross 4 mm x 40 mm balloon at the proximal and distal superficial femoral artery. Then, we advanced the shockwave and 5+ lithotripsy balloon (5.0 x 60 mm) and performed lithotripsy to the ostial SFA, proximal SFA and distal SFA stenoses. Then, we proceeded with Medtronic impact Admiral drug coated balloon angioplasty (4.0 x 250 mm) to cover all stenoses. Patient required a significant amount of IV sedation as noted above in small intervals throughout the procedure due to complaints of low back pain, left shoulder pain and left arm pain. Post intervention angiography revealed less than 20% stenosis of all lesions, with full report as noted below. The destination sheath was removed and placement of six [place] short sheath which was sutured in place. FINDINGS: There is a patent aortobifemoral graft bilaterally with 100% occlusions of the common and external iliac bilaterally. The left lower extremities not imaged. On the right lower extremity, there is moderate diffuse disease of the profunda. The common femoral artery is patent spleen luminal irregularities. The ostial right SFA with 80% calcific stenosis to less than 20% residual. The proximal SFA with 90% stenosis to less than 10% residual. The distal SFA 80% stenosis to less than 10% residual. Popliteal artery is patent without angiographic disease. The proximal anterior tibialis artery displaced 50-60% stenosis however is patent to the level of the foot and pedal arch. The tibioperoneal trunk is 100% occluded. The peroneal artery fills via collaterals and is otherwise patent and angiographically free of disease. The proximal posterior tibialis initially reconstitutes via collaterals however is 100% occluded thereafter without reconstitution. SUMMARY: Right superficial femoral artery ostial 80% calcific stenosis, proximal SFA 90% stenosis, distal SFA 80% stenosis treated with Balloon angioplasty (Evercross 4 x 40 mm), Shockwave lithotripsy M5+ 5.0 x 60 mm, Medtronic INPACT Admiral drug coated balloon angioplasty 4.0 x 250mm with <20%, <10%, and <10% residual stenoses respectively. TASHI JOHN DO Apr 13, 2024 13:30
[2024-04-14] VITALS (8 sets, daily range): BP systolic 110–123; BP diastolic 54–82; PULSE 69–87; RESP 18–20; TEMP 97.7–98.6; O2SAT 93–95
[2024-04-14] MEDS: INSULIN humuLIN R 100 UNIT/ML 3ML SQ ONE (00:02)
[2024-04-14 03:59] LABS: BASOPHILS # (AUTO) 0.02 K/uL (0.00-0.20); BASOPHILS % (AUTO) 0.2 % (0.0-5.0); HEMATOCRIT 21.7 % (42-54); IMMATURE GRANULOCYTE ABSOLUTE 0.12 K/uL (0-1); LYMPHOCYTES # (AUTO) 1.2 K/uL (1.0-4.8); LYMPHOCYTES % (AUTO) 9.9 % (21.0-51.0); MEAN CORPUSCULAR HEMOGLOBIN 29.8 pg (27.0-33.0); MEAN CORPUSCULAR HGB CONC 32.3 g/dL (32.0-36.0); MEAN CORPUSCULAR VOLUME 92.3 fL (79-99); MONOCYTES # (AUTO) 0.6 K/uL (0.1-1.0); MONOCYTES % (AUTO) 4.7 % (3.0-13.0); NEUTROPHILS # (AUTO) 10.3 K/uL (1.8-7.7); NEUTROPHILS % (AUTO) 84.2 % (40.0-77.0); NUCLEATED RED BLOOD CELLS 0.2 % (0.0-0.19); PLATELET COUNT (AUTO) 604 K/uL (130-400); RED BLOOD CELL COUNT(AUTO) 2.35 MIL/uL (4.50-6.20); RED CELL DISTRIBUTION WIDTH 13.5 % (11.0-15.5); WHITE BLOOD COUNT (AUTO) 12.2 K/uL (4.8-10.8)
[2024-04-14 04:06] LABS: CREATININE 1.3 mg/dL (0.5-1.3); MAGNESIUM 2.2 mg/dL (1.80-2.40); POTASSIUM 4.3 mmol/L (3.5-5.1)
[2024-04-14 04:43] LABS: WBC MORPHOLOGY CONSISTENT W/DIFF
--- NOTE | 2024-04-14 05:29 | PN ---
[facility] CARDIOLOGY PROGRESS NOTE Date Patient Seen: Apr 14, 2024 Time of Visit: 05:27 Problem List: PAD Interval History: POD 1 from Right SFA SUSPENSION CORD TIER Physical Examination: GENERAL: [No acute distress.] NECK: [Normal carotid upstrokes without bruits.] LUNGS: [Clear breath sounds bilaterally. No wheezes, or rhonchi.] HEART: [Normal rate and rhythm. Normal S1 and S2 without mumurs, gallop or rub.] VASC: [Peripheral pulses +2 bilateral radial. Left brachial no swelling, 2+ pulse, no hematoma. Right DP palpable 2+.] ABD: [soft, nontender EXT: [No clubbing, cyanosis or edema.] SKIN: [No rashes or lesions noted.] NEURO: [Awake, alert, and oriented x3. No focal sensory or strength deficits noted.] Laboratory: [ ] Hematology Labs: Test 04/14/24 04:20 Range/Units White Blood Count 12.2 H 4.8-10.8 K/uL Red Blood Count 2.35 L 4.50-6.20 MIL/uL Hemoglobin 7.0 *L 14.0-18.0 g/dL Hematocrit 21.7 L 42-54 % Mean Corpuscular Volume 92.3 79-99 fL Mean Corpuscular Hemoglobin 29.8 27.0-33.0 pg Mean Corpuscular Hemoglobin Concent 32.3 32.0-36.0 g/dL Red Cell Distribution Width 13.5 11.0-15.5 % Platelet Count 604 H 130-400 K/uL Mean Platelet Volume 9.6 7.5-10.5 fL Immature Granulocyte % (Auto) 1.0 0-1 % Neutrophils (%) (Auto) 84.2 H 40.0-77.0 % Lymphocytes (%) (Auto) 9.9 L 21.0-51.0 % Monocytes (%) (Auto) 4.7 3.0-13.0 % Eosinophils (%) (Auto) 0.0 0.0-8.0 % Basophils (%) (Auto) 0.2 0.0-5.0 % Neutrophils # (Auto) 10.3 H 1.8-7.7 K/uL Lymphocytes # (Auto) 1.2 1.0-4.8 K/uL Monocytes # (Auto) 0.6 0.1-1.0 K/uL Eosinophils # (Auto) 0.00 0.00-0.70 K/uL Basophils # (Auto) 0.02 0.00-0.20 K/uL Absolute Immature Granulocyte (auto 0.12 0-1 K/uL Nucleated Red Blood Cells 0.2 H 0.0-0.19 % White Cell Morphology Comment CONSISTENT W/DIFF Chemistry Labs: Test 04/14/24 03:41 04/13/24 23:22 04/13/24 21:06 04/13/24 05:35 Range/Units Sodium Level 138 136-145 mmol/L Potassium Level 4.3 3.5-5.1 mmol/L Chloride Level 106 101-111 mmol/L Carbon Dioxide Level 21 21-32 mmol/L Blood Urea Nitrogen 31 H 7-18 mg/dL Creatinine 1.3 0.5-1.3 mg/dL Glomerular Filtration Rate Calc 58 >90 mL/min Random Glucose 342 #H 70-105 mg/dL Total Calcium 8.4 L 8.5-10.1 mg/dL Magnesium Level 2.20 1.80-2.40 mg/dL Whole Blood Glucose 411 *H 70-110 MG/DL Bedside Glucose Comment Notified Nurse Bedside Glucose #2 Comment Notified Nurse Total Bilirubin 0.2 0.2-1.0 mg/dL Aspartate Amino Transf (AST/SGOT) 17 10-37 U/L Alanine Aminotransferase (ALT/SGPT) 20 12-78 U/L Alkaline Phosphatase 162 H 50-136 U/L Total Protein 5.9 L 6.0-8.3 g/dL Albumin 1.4 L 3.5-5.0 g/dL Test 04/12/24 13:50 Range/Units Lactic Acid Level 1.9 0.8-2.5 mmol/L Coagulation Labs: Test 04/13/24 15:45 Range/Units Activated Partial Thromboplast Time 28.4 26.3-35.5 SEC Impression and Plan: -PAD s/p Right superficial femoral artery ostial 80% calcific stenosis, proximal SFA 90% stenosis, distal SFA 80% stenosis treated with Balloon angioplasty (Evercross 4 x 40 mm), Shockwave lithotripsy M5+ 5.0 x 60 mm, Medtronic INPACT Admiral drug coated balloon angioplasty 4.0 x 250mm with <20%, <10%, and <10% residual stenoses respectively on 04/13/24 via L brachial approach -Acute on chronic anemia -HTN, HLP, DM2, hypothyroidism Recheck HH If stable and no bleeding, resume DAPT with aspirin 81mg daily and clopidogrel 75 mg daily. Outpatient follow up in 2 weeks. TASHI MORALES DO Apr 14, 2024 05:29
[2024-04-14] MEDS: INSULIN humuLIN R 100 UNIT/ML 3ML SQ SCH (06:37)
[2024-04-14 13:24] LABS: HEMATOCRIT 23.4 % (42-54)
[2024-04-14] MEDS ORDERED: HydroCORTISONE 1% CREAM 28G TP PRN (16:30)
[2024-04-14] MEDS ORDERED: [UNRECOGNIZED DRUG - CODE] IM (18:31)
--- NOTE | 2024-04-14 19:10 | DS ---
[facility] DISCHARGE SUMMARY Date Patient Seen: Apr 14, 2024 Time of Visit: 18:59 Supervising Physician: BK BANDA MD Primary Care Physician: Outpatient Specialists: [ ] Inpatient Consults: UROLOGY - ASASE , PROBLEM LIST: - Acute sepsis on admission - Community acquired pneumonia - Acute complicated cystitis - Obstructive uropathy secondary to BPH - Hypertension - Iron deficiency anemia - 3rd grade high ankle sprain to the RLE - RLE cellulitis - PAD - Iron deficiency anemia - Hypothyroidism - Type 2 diabetes mellitus HOSPITAL COURSE: 73 years old man presented to the hospital with cough, weakness and dyspnea Ruled in for acute sepsis secondary to community acquired pneumonia On admission, patient had also sustained a mechanical fall resulting a 3rd degree right ankle sprain ACTIVE PROBLEM LIST FOR THE HOSPITALIZATION: Acute sepsis secondary to pneumonia CHRONIC PROBLEMS: type 2 diabetes mellitus, hypertension, hypothyroidism, aortic stenosis PROFESSIONAL ARCHITECT FINDINGS/RECOMMENDATIONS: Pneumonia, sepsis, aortic stenosis PROCEDURES: Angiogram of the right SFA DISCHARGE MEDICATIONS: Patient will be discharged on Plavix and aspirin I spoke with patient at length about the risks of being on anticoagulation and the risks of being off anticoagulation Patient decided to be on anticoagulation therapy Pt hemodynamically stable and afebrile at time of discharge. PCP notified of patients admission, hospital course and discharge. PHYSICAL EXAM: GENERAL: alert, weak, awake oriented x 3 HEENT: EOMI, Sclera non icteric, moist mucosa NECK: Supple, no JVD, trachea midline LUNGS: Clear breath sounds bilaterally. No wheezes HEART: Regular rate and rhythm. Normal S1 and S2, without murmurs ABD: Abdomen soft, nontender. Bowel sounds present EXT: Right ankle pain with swelling and erythema, improved from previous NEURO: Alert and oriented to person, follows commands FOLLOW-UP: Follow-up with PCP in 2-3 days RECOMMENDATIONS: See Discharge Instructions ATTESTATION BY PHYSICIAN The clinical note was scribed by Korey Olea [facility] [place], and I attest to the accuracy of the note Bk Banda MD I personally scribed for BK BANDA MD ([email or web address]) on 04/14/24 at 19:10. Electronically submitted by Korey Olea ([email or web address]). BK BANDA MD Apr 14, 2024 19:10
== END 2024-04-14 18:10 | DRG 853 ==
LOC: EDH 13:34 → EDHIP 17:43 → 4AH 04-07 03:58 → 2AH 04-13 13:22
PROVIDERS: ADMIT Internal Medicine Pulmonary Disease; ATTEND Internal Medicine Pulmonary Disease
PROC: 04FK3ZZ Fragmentation of Right Femoral Artery, Percutaneous Approach (ICD-10-PCS; principal; 2024-04-13)
PROC: 047K3Z1 Dilation of Right Femoral Artery using Drug-Coated Balloon, Percutaneous Approach (ICD-10-PCS; 2024-04-13)
PROC: B4101ZZ Fluoroscopy of Abdominal Aorta using Low Osmolar Contrast (ICD-10-PCS; 2024-04-13)
PROC: B41F1ZZ Fluoroscopy of Right Lower Extremity Arteries using Low Osmolar Contrast (ICD-10-PCS; 2024-04-13)
DX: A41.9 Sepsis, unspecified organism (principal); J18.9 Pneumonia, unspecified organism; N17.9 Acute kidney failure, unspecified; J90 Pleural effusion, not elsewhere classified; L03.115 Cellulitis of right lower limb; J98.11 Atelectasis; N13.8 Other obstructive and reflux uropathy; N30.00 Acute cystitis without hematuria; Z20.822 Contact with and (suspected) exposure to COVID-19; S93.401A Sprain of unspecified ligament of right ankle, initial encounter; E11.65 Type 2 diabetes mellitus with hyperglycemia; E03.9 Hypothyroidism, unspecified; E78.00 Pure hypercholesterolemia, unspecified; I10 Essential (primary) hypertension; M79.89 Other specified soft tissue disorders; N40.1 Benign prostatic hyperplasia with lower urinary tract symptoms; D50.9 Iron deficiency anemia, unspecified; E11.51 Type 2 diabetes mellitus with diabetic peripheral angiopathy without gangrene; F17.210 Nicotine dependence, cigarettes, uncomplicated; I35.0 Nonrheumatic aortic (valve) stenosis; K57.30 Diverticulosis of large intestine without perforation or abscess without bleeding; M19.09 Primary osteoarthritis, other specified site; M25.512 Pain in left shoulder; Z91.041 Radiographic dye allergy status
CPT/HCPCS: 36415; 71045; 71250; 73030; 73552; 73590; 73610; 73721; 74176; 75625; 75710; 75716; 80048; 80053; 81001; 82550; 82607; 82728; 82948; 83036; 83605; 83735; 83880; 84100; 84145; 84153; 84443; 84484; 85014; 85018; 85025; 85610; 85730; 87040; 87071; 87205; 87635; 87804; 93005; 93306; 93926; 93970; 94640; 94664; 96365; 96375; 99156; 99157; C1769; C1893; C1894; C9764; G0378; J0360; J0456; J0696; J1200; J1644; J1756; J1815; J2250; J2270; J2405; J2919; J3010; J3490; J7030; Q9967; C1725; C1887; C2623

== ENCOUNTER → 2024-05-10 | Outpatient (CLI) | payer OTHER ==
[~2024-05-10] MED LIST changes: -AMLO-257 PO; +AMLO-258 PO; +CILO100T3 PO; -DOCU100T9 PO; +EMPA25TA PO; -FAMO40TA7 PO; +INSLAN SQ; +INSU100I15 SQ; -INSU200I SQ; -INSU3INS3 SQ; +MELO-108 PO; -METO-408 PO; +RIVA2.5T PO; +VITAD50000 PO; +[UNRECOGNIZED DRUG - CODE] IM
== END | disposition home or self-care (01) ==
LOC: WHH 10:02
PROVIDERS: ATTEND Family Medicine
DX: L89.154 Pressure ulcer of sacral region, stage 4 (principal); E11.51 Type 2 diabetes mellitus with diabetic peripheral angiopathy without gangrene; I10 Essential (primary) hypertension; N40.0 Benign prostatic hyperplasia without lower urinary tract symptoms; E78.00 Pure hypercholesterolemia, unspecified; E03.9 Hypothyroidism, unspecified; M19.90 Unspecified osteoarthritis, unspecified site; Z79.899 Other long term (current) drug therapy; Z87.891 Personal history of nicotine dependence
CPT/HCPCS: G0463

== ENCOUNTER → 2024-05-18 | Outpatient (CLI) | payer OTHER ==
[2024-05-18 08:48] LABS: BASOPHILS # (AUTO) 0.04 K/uL (0.00-0.20); BASOPHILS % (AUTO) 0.3 % (0.0-5.0); EOSINOPHILS # (AUTO) 0.25 K/uL (0.00-0.70); EOSINOPHILS % (AUTO) 2.1 % (0.0-8.0); HEMATOCRIT 31.6 % (42-54); IMMATURE GRANULOCYTE ABSOLUTE 0.07 K/uL (0-1); LYMPHOCYTES # (AUTO) 1.4 K/uL (1.0-4.8); LYMPHOCYTES % (AUTO) 12.3 % (21.0-51.0); MEAN CORPUSCULAR HEMOGLOBIN 28.1 pg (27.0-33.0); MEAN CORPUSCULAR HGB CONC 30.4 g/dL (32.0-36.0); MEAN CORPUSCULAR VOLUME 92.4 fL (79-99); MONOCYTES # (AUTO) 0.7 K/uL (0.1-1.0); MONOCYTES % (AUTO) 5.7 % (3.0-13.0); NEUTROPHILS # (AUTO) 9.3 K/uL (1.8-7.7); PLATELET COUNT (AUTO) 637 K/uL (130-400); RED BLOOD CELL COUNT(AUTO) 3.42 MIL/uL (4.50-6.20); RED CELL DISTRIBUTION WIDTH 15.7 % (11.0-15.5); WHITE BLOOD COUNT (AUTO) 11.7 K/uL (4.8-10.8)
[2024-05-18 08:53] LABS: CREATININE 1.3 mg/dL (0.5-1.3)
== END | disposition home or self-care (01) ==
LOC: LAB 07:34
PROVIDERS: ATTEND Urology
DX: D49.511 Neoplasm of unspecified behavior of right kidney (principal)
CPT/HCPCS: 36415; 80048; 85025

== ENCOUNTER → 2024-05-19 | Outpatient (CLI) | payer OTHER ==
[~2024-05-19] MED LIST changes: +IOHEXOL-350 75 ML VIAL IV ONE
--- NOTE | 2024-05-19 10:47 | HMCIMG ---
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 Patient was given 75 cc of Omnipaque through intravenous route. Oral contrast was not given. FINDINGS: Small right pleural effusion is seen. There is no evidence of parenchymal disease or pulmonary nodule of the visualized lower lungs. Degenerative changes of the thoracolumbar spine are present. The heart is not enlarged. Liver measures 16 cm. There is right posterior renal mass measuring 3 x 3.1 cm with adjacent fat stranding. There is internal enhancement. Findings are suggestive neoplastic process. The liver, spleen, adrenal glands and pancreas are unremarkable. Tiny bilateral renal cysts are seen There is no evidence of hydronephrosis bilaterally. No evidence of renal stone is seen. Fecal material is seen in the colon. There are normal size retroperitoneal and mesenteric lymph nodes. No ascites is seen. Atherosclerotic changes are present. Pelvic sidewalls are symmetric bilaterally. Bladder is moderately distended. There is left lateral bladder wall thickening measuring 2 cm with neoplastic process not excluded. Prostate gland measures by 4 cm. IMPRESSION: 1. There is right posterior renal mass measuring 3 x 3.1 cm with adjacent fat stranding. There is internal enhancement. 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 This is increased in size from previous study. There is left lateral bladder wall thickening measuring 2 cm in thickness with neoplastic process not excluded. CT was performed with one or more following dose reduction techniques: automated exposure control, adjustment of the mA and kv according to patient's size, or use of a iterative reconstruction technique.
== END | disposition home or self-care (01) ==
LOC: RAH 08:29
PROVIDERS: ATTEND Urology
DX: D49.511 Neoplasm of unspecified behavior of right kidney (principal); N28.89 Other specified disorders of kidney and ureter; N25.89 Other disorders resulting from impaired renal tubular function; J90 Pleural effusion, not elsewhere classified; M47.815 Spondylosis without myelopathy or radiculopathy, thoracolumbar region; I70.0 Atherosclerosis of aorta
CPT/HCPCS: 74178; Q9967

== ENCOUNTER → 2024-05-24 | Outpatient (CLI) | payer OTHER ==
[~2024-05-24] MED LIST changes: -IOHEXOL-350 75 ML VIAL IV ONE
== END | disposition home or self-care (01) ==
LOC: WHH 10:02
PROVIDERS: ATTEND Family Medicine
DX: L89.154 Pressure ulcer of sacral region, stage 4 (principal); E11.51 Type 2 diabetes mellitus with diabetic peripheral angiopathy without gangrene; I10 Essential (primary) hypertension; E78.00 Pure hypercholesterolemia, unspecified; E03.9 Hypothyroidism, unspecified; N40.0 Benign prostatic hyperplasia without lower urinary tract symptoms; M19.90 Unspecified osteoarthritis, unspecified site; Z87.891 Personal history of nicotine dependence; Z79.899 Other long term (current) drug therapy
CPT/HCPCS: G0463; A6212

== ENCOUNTER → 2024-05-31 | Outpatient (CLI) | payer OTHER | END | disposition home or self-care (01) | LOC: WHH 09:30 | PROVIDERS: ATTEND Family Medicine | DX: L89.154 Pressure ulcer of sacral region, stage 4 (principal); E11.51 Type 2 diabetes mellitus with diabetic peripheral angiopathy without gangrene; I10 Essential (primary) hypertension; E78.00 Pure hypercholesterolemia, unspecified; E03.9 Hypothyroidism, unspecified; N40.0 Benign prostatic hyperplasia without lower urinary tract symptoms; M19.90 Unspecified osteoarthritis, unspecified site; Z87.891 Personal history of nicotine dependence; Z79.899 Other long term (current) drug therapy | CPT/HCPCS: G0463; A6212; A6213 ==

== ENCOUNTER → 2024-08-09 | Outpatient (CLI) | payer OTHER ==
--- NOTE | 2024-08-11 06:48 | HMCSR ---
APPROVED REPORT Laterality: Bilateral Indications PVD VELOCITY AND DOPPLER WAVEFORM ANALYSIS EXECUTIVE SERVICES ADMINISTRATOR (R) 72.6cm/sec, Monophasic, EXECUTIVE SERVICES ADMINISTRATOR (L) 80.7cm/sec, Monophasic, Prof Fem Art. (R) 72.9cm/sec, Monophasic, Prof Fem Art. (L) 136.0cm/sec, Monophasic, Fem Art Prox. (R) 348.1cm/sec, Monophasic, Fem Art Prox. (L) 187.0cm/sec, Monophasic, Fem Art Mid. (R) 109.3cm/sec, Monophasic, Fem Art Mid. (L) 153.0cm/sec, Monophasic, Fem Art Dist (R) 127.2cm/sec, Monophasic, Fem Art Dist. (L) 232.1cm/sec, Monophasic, Pop Art(AK) (R) 98.7cm/sec, Monophasic, Pop Art (AK) (L) 184.2cm/sec, Monophasic, Pop Art (Fossa)(R) 70.9cm/sec, Monophasic, Pop Art (Fossa) (L) 173.8cm/sec, Monophasic, Pop Art(BK) (R) 86.1cm/sec, Monophasic, Pop Art (BK) (L) 115.8cm/sec, Monophasic, DUMP MOTOR OPERATOR Dist. (R) 26.1cm/sec, Monophasic, DUMP MOTOR OPERATOR Dist. (L) 60.7cm/sec, Monophasic, Per Art Dist. (R) 31.8cm/sec, Monophasic, Per Art Dist. (L) 42.6cm/sec, Monophasic, YULI Dist. (R) 44.9cm/sec, Monophasic, YULI Dist. (L) 45.4cm/sec, Monophasic, Technologist Impression Diffuse atherosclerosis throughout the bilateral lower extremities. Monophasic waveforms seen bilaterally Elevated velocities seen in the RT.SFA 348.1 cm/s suggestive of >75% stenosis. Elevated velocities seen in the LT.SFA Distal 232.1 cm/s suggestive of >50% stenosis. Fem-Fem bypass seen mostly occluded with velocities of 16.9 cm/s - 13.5 cm/s. Conclusion Elevated velocities seen in the RT.SFA 348.1 cm/s suggestive of >75% stenosis. Elevated velocities seen in the LT.SFA Distal 232.1 cm/s suggestive of >50% stenosis. Fem-Fem bypass seen mostly occluded with velocities of 16.9 cm/s - 13.5 cm/s. Severe bilateral peripheral arterial disease Consider formal angiography versus CTA of abdominal aorta with bilateral lower extremity runoff if in dicated Conclusion Elevated velocities seen in the RT.SFA 348.1 cm/s suggestive of >75% stenosis. Elevated velocities seen in the LT.SFA Distal 232.1 cm/s suggestive of >50% stenosis. Fem-Fem bypass seen mostly occluded with velocities of 16.9 cm/s - 13.5 cm/s. Severe bilateral peripheral arterial disease Consider formal angiography versus CTA of abdominal aorta with bilateral lower extremity runoff if in dicated
== END | disposition home or self-care (01) ==
LOC: SHCH 08:31
PROVIDERS: ATTEND Internal Medicine
DX: I73.9 Peripheral vascular disease, unspecified (principal)
CPT/HCPCS: 93925

== ENCOUNTER → 2024-10-08 | Outpatient (CLI) | payer OTHER ==
[~2024-10-08] MED LIST changes: -LEVO50CA4 PO; +LEVO50CA5 PO
--- NOTE | 2024-10-08 10:41 | HMCIMG ---
Exam Type: US VENOUS DOPPLER UNILATERAL Clinical Information: CELLULITIS OF RLE Comparison: None Findings: The examination shows normal deep venous system. There is normal compressibility at all levels. There is no intraluminal clot. There is no occlusion. Adequate response is obtained on augmentation. Impression: No evidence of DVT.
--- NOTE | 2024-10-08 11:33 | HMCIMG ---
Exam Type: US ARTERIAL UNILA LOW EXT DUPL Clinical Information: CELLULITIS OF RLE Comparison: None Findings: Diffuse bilateral plaque is identified. There are monophasic abnormal waveforms of the entire right lower extremity arterial vascularity, with evidence of over 80% stenosis at the level of the proximal superficial femoral artery, consistent with severe nonocclusive disease. IMPRESSION: Peripheral vascular disease as noted.
== END | disposition home or self-care (01) ==
LOC: RAH 09:32
PROVIDERS: ATTEND Internal Medicine
DX: I70.203 Unspecified atherosclerosis of native arteries of extremities, bilateral legs (principal); L03.115 Cellulitis of right lower limb; R60.0 Localized edema; I80.9 Phlebitis and thrombophlebitis of unspecified site; M79.661 Pain in right lower leg
CPT/HCPCS: 93926; 93971